=== PATIENT | female | born 1970 | race Caucasian/White ===

== ENCOUNTER 2020-03-14 23:31 | Observation (INO) | payer MEDICARE, OTHER, MEDICAID ==
--- NOTE | 2020-03-15 00:47 | ER Document Report ---
ED Medical Screen (RME) - General Chief Complaint: Accidental Overdose Stated Complaint: POSSIBLE OVERDOSE Time Seen by Provider: 03/15/20 00:44 Primary Care Provider: KAYLYN CUEVAS [Primary Care Provider] - Follow up as needed Notes: 49-year-old female with history of hypertension, diabetes, and obesity here because she took 2 blood pressure pills this evening instead of her normal dose of 1. Patient's chief complaint is chest pains and shortness of breath. She said she feels nervous about possibly taking too much medication she is not associate the onset of the chest pain and the shortness of breath with taking her medication. General exam: No acute distress Cardiac: Regular rate and rhythm no murmurs rubs or gallops Pulmonary: No respiratory distress clear to auscultation Abdomen nondistended nontender. Neuro: No focal deficits I have greeted and performed a rapid initial assessment of this patient. A comprehensive ED assessment and evaluation of the patient, analysis of test results and completion of the medical decision making process will be conducted by additional ED providers. - Related Data Allergies/Adverse Reactions: latex Allergy (Severe, Verified 03/14/20 23:50) azithromycin [From Zithromax Z-Domingo] Allergy (Verified 03/14/20 23:50) tetracycline Allergy (Verified 03/14/20 23:50) Past Medical History - Social History Chew tobacco use (# tins/day): No Frequency of alcohol use: None Drug Abuse: None Physical Exam - Vital signs Vitals: Temp Pulse Resp BP Pulse Ox 98.3 F 78 20 130/63 H 95 03/14/20 23:45 03/14/20 23:45 03/14/20 23:45 03/14/20 23:45 03/14/20 23:45 Course - Vital Signs Vital signs: Temp Pulse Resp BP Pulse Ox 98.3 F 78 20 130/63 H 95 03/14/20 23:45 03/14/20 23:45 03/14/20 23:45 03/14/20 23:45 03/14/20 23:45 Doctor's Discharge - Discharge Referrals: KAYLYN CUEVAS [Primary Care Provider] - Follow up as needed
[2020-03-15 01:22] LABS: ABSOLUTE EOSINOPHILS # (AUTO) 0.2 10^3/uL (0.0-0.6); ABSOLUTE LYMPHOCYTES (AUTO) 4.2 10^3/uL (0.5-4.7); ABSOLUTE MONOCYTES (AUTO) 0.9 10^3/uL (0.1-1.4); ABSOLUTE NEUT (AUTO) 7.8 10^3/uL (1.7-8.2); BASOPHILS % (AUTO) 0.1 % (0-2); EOSINOPHILS % (AUTO) 1.5 % (0-6); HEMATOCRIT 38.7 % (36.0-47.0); LYMPHOCYTES % (AUTO) 31.9 % (13-45); MEAN CORPUSCULAR HEMOGLOBIN 28.5 pg (27.0-33.4); MEAN CORPUSCULAR HGB CONC 33.7 g/dL (32.0-36.0); MEAN CORPUSCULAR VOLUME 85 fl (80-97); MONOCYTES % (AUTO) 7.2 % (3-13); PLATELET COUNT 294 10^3/uL (150-450); RED BLOOD COUNT 4.57 10^6/uL (3.72-5.28); RED CELL DISTRIBUTION WIDTH 15.2 % (11.5-14.0); SEGMENTED NEUTROPHILS % (AUTO) 59.3 % (42-78); TOTAL CELLS COUNTED % (AUTO) 100 %; WHITE BLOOD COUNT 13.1 10^3/uL (4.0-10.5)
--- NOTE | 2020-03-15 01:22 | ER Document Report ---
ED General - General Chief Complaint: Accidental Overdose Stated Complaint: POSSIBLE OVERDOSE Time Seen by Provider: 03/15/20 00:44 Primary Care Provider: KAYLYN CUEVAS [NO LOCAL MD] - Follow up as needed - [facility] Notes: 49-year-old female presents with accidentally taking 2 doses of prazosin, took 2 mg in total. This occurred around 9 PM. She is prescribed this medication for night terrors. However on further discussion, patient states that she is actually here for chest pain. She developed chest pain while lying in bed around 10:30 PM. She states it feels like pressure, it radiates down her right arm and her right jaw. She states that it was worse with exertion. She states that she has had this chest pain before, and it was from a low potassium. She denies a history of coronary artery disease or AR. She states she has never had a stress test before. Additionally feels like she is having some chest tightness/shortness of breath. History of high blood pressure, high cholesterol, diabetes. - Related Data Allergies/Adverse Reactions: latex Allergy (Severe, Verified 03/14/20 23:50) azithromycin [From Zithromax Z-Domingo] Allergy (Verified 03/14/20 23:50) tetracycline Allergy (Verified 03/14/20 23:50) Past Medical History - General Information source: Patient - Social History Smoking Status: Current Every Day Smoker Chew tobacco use (# tins/day): No Frequency of alcohol use: None Drug Abuse: None Family History: Other Patient has homicidal ideation: No - Past Medical History Cardiac Medical History: Reports: Hx Hypercholesterolemia, Hx Hypertension Endocrine Medical History: Reports: Hx Diabetes Mellitus Type 2 Review of Systems - Review of Systems Constitutional: No symptoms reported EENT: No symptoms reported Cardiovascular: Chest pain Respiratory: Short of breath Gastrointestinal: No symptoms reported Genitourinary: No symptoms reported Musculoskeletal: No symptoms reported Skin: No symptoms reported Neurological/Psychological: No symptoms reported Physical Exam - Vital signs Vitals: Temp Pulse Resp BP Pulse Ox 98.3 F 78 20 130/63 H 95 03/14/20 23:45 03/14/20 23:45 03/14/20 23:45 03/14/20 23:45 03/14/20 23:45 - General General appearance: Appears well, Alert In distress: None - HEENT Head: Normocephalic, Atraumatic Extraocular movements intact: Yes Pupils: PERRL - Respiratory Chest status: Nontender Breath sounds: Normal - Cardiovascular Rhythm: Regular Heart sounds: Normal auscultation - Abdominal Inspection: Obese Tenderness: Nontender - Extremities General lower extremity: No: Edema - Neurological Neuro grossly intact: Yes Cognition: Normal Orientation: AAOx4 - Psychological Associated symptoms: Flat affect - Skin Skin Temperature: Warm Course - Re-evaluation Re-evalutation: 49-year-old female initially presenting to the ED for concerns of accidentally taking too much prazosin, she took 2 mg in total. Her blood pressure is okay, actually on the hypertensive side. This is still within a therapeutic dose of prazosin. Will monitor. On further discussion, patient then mentions chest pressure, onset around 10:30 PM, has been constant and she reports worse with exertion. No known cardiac disease, though would have risk factors as she is obese and has HTN/HLD/DM. Her EKG is nonischemic. Aspirin and nitro ordered. 03/15/20 02:35 Minimal leukocytosis. No acute anemia. Mild hypokalemia 3.2, oral replacement ordered. Initial troponin negative, this was drawn close to 3 hours since the onset of chest pain 03/15/20 02:53 Went into reassess patient. She reports her chest pain is relieved. I discussed with her work-up so far. She has just moved to the [place] area, her PCP is in [place] therefore she would not be able to follow-up and get stress test outpatient. Discussed with her admitting her for inpatient stress test based on her risk factors, patient is agreeable for admission. 03/15/20 03:01 Discussed with the hospitalist for admission, she will be admitted to telemetry floor for further evaluation of chest pain - Vital Signs Vital signs: Temp Pulse Resp BP Pulse Ox 98.3 F 78 22 H 122/66 96 03/14/20 23:45 03/14/20 23:45 03/15/20 01:50 03/15/20 01:50 03/15/20 01:49 - Laboratory Result Diagrams: 03/15/20 01:06 03/15/20 01:06 Laboratory results interpreted by me: 03/15/20 03/15/20 01:06 01:06 WBC 13.1 H RDW 15.2 H Potassium 3.2 L Chloride 97 L Carbon Dioxide 32 H Est GFR (MDRD) Non-Af 56 L Glucose 146 H - Diagnostic Test Radiology reviewed: Image reviewed, Reports reviewed - EKG Interpretation by Me Additional EKG results interpreted by me: EKG is interpreted by me. Normal sinus rhythm, rate 74. Narrow QRS. QTc within normal limits. No ST segment elevation. There is a PVC. No previous for comparison. Discharge - Discharge Clinical Impression: Chest pain Qualifiers: Chest pain type: unspecified Qualified Code(s): R07.9 - Chest pain, unspecified Disposition: ADMITTED INPATIENT Admitting Provider: Terrell (Hospitalist) Unit Admitted: Telemetry Referrals: LOCALMD,NO [NO LOCAL MD] - Follow up as needed
[2020-03-15] MEDS ORDERED: ASPIRIN 81 MG TABLET, CHEWABLE PO ONE (01:35)
[2020-03-15 01:45] LABS: ALBUMIN 4.5 g/dL (3.5-5.0); ALKALINE PHOSPHATASE 83 U/L (38-126); ANION GAP 9 (5-19); ASPARTATE AMINO TRANSFERASE 25 U/L (14-36); BILIRUBIN,DIRECT 0.3 mg/dL (0.0-0.4); BILIRUBIN,TOTAL 0.7 mg/dL (0.2-1.3); BLOOD UREA NITROGEN 14 mg/dL (7-20); CALCIUM 9.3 mg/dL (8.4-10.2); CARBON DIOXIDE 32 mmol/L (22-30); CHLORIDE 97 mmol/L (98-107); GLUCOSE 146 mg/dL (75-110); POTASSIUM 3.2 mmol/L (3.6-5.0); TOTAL PROTEIN 7.6 g/dL (6.3-8.2)
[2020-03-15] MEDS: NITROGLYCERIN 0.4 MG/TAB 25 TAB/BOTTLE SL PRN ×2 (01:47→02:10)
[2020-03-15] MEDS ORDERED: POTASSIUM CHLORIDE 20 MEQ PACKET PO ONE (02:04)
--- NOTE | 2020-03-15 02:28 | RADIOLOGY REPORT (SQ) ---
EXAM DESCRIPTION: XR CHEST 1 VIEW COMPLETED DATE/TME: 03/15/2020 00:46 CLINICAL HISTORY: cp COMPARISON: None. FINDINGS: Single frontal radiograph view of the chest. Cardiomediastinal silhouette: Normal size and contour. Lungs: No consolidation, pneumothorax, or pleural effusion. Leads overlie the chest. Bones: No acute osseous abnormality. Upper abdomen: No abnormality identified. IMPRESSION: 1. No acute pulmonary process identified.
[2020-03-15] MEDS ORDERED: MAGNESIUM HYDROXIDE SUSP 30 ML UDCUP PO PRN (03:40)
[2020-03-15] MEDS ORDERED: ONDANSETRON HCL INJ/PF 4 MG/2 ML SDV IV PRN (03:40)
[2020-03-15] MEDS ORDERED: MAG HYDROX/AL HYDROX/SIMETH SUSP 30 ML UDCUP PO PRN (03:40)
[2020-03-15] MEDS ORDERED: LORAZEPAM INJ 2 MG/1 ML VIAL IV PRN (03:46)
[2020-03-15] MEDS ORDERED: MORPHINE SULFATE 10 MG/ML INJ IV PRN ×3 (03:46→06:47)
[2020-03-15] MEDS ORDERED: NICOTINE 21 MG/24 HR PATCH.TD24 TD PRN (03:46)
[2020-03-15] MEDS ORDERED: NITROGLYCERIN 0.4 MG/TAB 25 TAB/BOTTLE SL PRN (03:46)
[2020-03-15] MEDS ORDERED: HYDRALAZINE HCL INJ/PF 20 MG/1 ML SDV IV PRN (03:46)
[2020-03-15] MEDS ORDERED: ACETAMINOPHEN 325 MG TABLET PO PRN (03:46)
[2020-03-15] MEDS ORDERED: GUAIFENESIN SYRP 200 MG/10 ML UDC PO PRN (03:46)
[2020-03-15] MEDS ORDERED: MELATONIN 5 MG TABLET PO PRN (03:46)
[2020-03-15] MEDS ORDERED: DEXTROSE 40% GEL 15 GM TUBE PO PRN ×2 (03:48)
[2020-03-15] MEDS ORDERED: DEXTROSE 50%-WATER 25 GM/50 ML DISP.SYRIN IV PRN ×2 (03:48)
[2020-03-15] MEDS ORDERED: GLUCAGON,HUMAN RECOMB 1 MG INJ IM PRN (03:48)
[2020-03-15 04:43] LABS: CREATINE KINASE MB 1.31 ng/mL (<4.55)
[2020-03-15 04:47] LABS: TROPONIN I < 0.012 ng/mL
[2020-03-15] MEDS: HEPARIN SOD (PORCINE) 5,000 UNIT/ML 1 ML VIAL SUBCUT SCH ×3 (06:04→22:19)
--- NOTE | 2020-03-15 06:28 | PDOC H&P ---
History of Present Illness Admission Date/PCP: 03/15/20 03:06 No local PCP Patient complains of: Chest pressure History of Present Illness: REBECCA OJEDA is a 49 year old female who presented to the emergency room with acute chest pressure. She admits accidentally taking two 1 mg prazosin tablets at bedtime and this caused her concern as she was lying in bed and suddenly began having moderate pressure in her substernal chest which radiated down her right arm persisting continuously, until she was treated in the emergency room. The pain was exacerbated by exertion or activity. She admits accompanying mild dyspnea but denies denies other associated or accompanying signs and symptoms. She admits prior similar episodes. She has not identified any additional aggravating or ameliorating factors for her chest pressure. In the emergency room her chest pain was resolved with sublingual nitroglycerin x1, aspirin and supplemental oxygen. She was found to have a nonischemic EKG and cardiac enzymes which were within the normal range initially. She was subsequently admitted to observation status for further evaluation and treatment. Past Medical History Cardiac Medical History: Reports: Hyperlipidema, Hypertension Denies: Atrial Fibrillation, Congestive Heart Failure, Coronary Artery Disease, DVT, Myocardial Infarction, Peripheral Vascular Disease, Pulmonary Embolism Pulmonary Medical History: Reports: Asthma Denies: Chronic Obstructive Pulmonary Disease (COPD) EENT Medical History: Denies: Cataracts, Ears - Hearing aids Neurological Medical History: Denies: Hemorrhagic CVA, Ischemic CVA, Seizures Endocrine Medical History: Reports: Diabetes Mellitus Type 2, Obesity Denies: Diabetes Mellitus Type 1, Hyperthyroidism, Hypothyroidism Renal/ Medical History: Denies: Chronic Kidney Disease, Nephrolithiasis Malignancy Medical History: Reports: None GI Medical History: Denies: Cirrhosis, Crohn's Disease, Hepatitis, Peptic Ulcer Disease, Ulcerat nikki Colitis Musculoskeltal Medical History: Reports: Arthritis, Other - Chronic back pain due to lumbar disc disease Denies: Gout Skin Medical History: Denies: Eczema, Psoriasis Psychiatric Medical History: Reports: Tobacco Dependency, Other - Night terrors Denies: Alcohol Dependency, Substance Abuse Traumatic Medical History: Reports: None Hematology: Denies: Anemia, Bleeding Tendencies Infectious Medical History: Reports: None Past Surgical History Past Surgical History: Reports: Appendectomy, Cholecystectomy, Hysterectomy, Orthopedic Surgery - Multiple back and knee surgeries, Other - Colonoscopy and EGD Social History Information Source: Patient Lives with: Alone Smoking Status: Current Every Day Smoker Cigarettes Packs Per Day: 0.5 Electronic Cigarette use?: No Frequency of Alcohol Use: None Hx Recreational Drug Use: No Drugs: None Hx Prescription Drug Abuse: No - Advance Directive Resuscitation Status: Full Code Surrogate healthcare decision maker:: Iram Stewart Family History Family History: DM, Hyperlipidemia, Hypertension. denies: CAD, Malignancy Parental Family History Reviewed: Yes Children Family History Reviewed: No Sibling(s) Family History Reviewed.: Yes Medication/Allergy Allergies/Adverse Reactions: latex Allergy (Severe, Verified 03/14/20 23:50) azithromycin [From Zithromax Z-Domingo] Allergy (Verified 03/14/20 23:50) tetracycline Allergy (Verified 03/14/20 23:50) Review of Systems Constitutional: ABSENT: chills, fever(s) Eyes: ABSENT: visual disturbances, other - Eye pain Ears: ABSENT: hearing changes, other - Ear pain Nose, Mouth, and Throat: ABSENT: headache(s), sore throat Cardiovascular: PRESENT: as per HPI, chest pain - Chest pressure, dyspnea on exertion. ABSENT: edema, orthropnea, palpitations Respiratory: PRESENT: dyspnea. ABSENT: cough Gastrointestinal: ABSENT: abdominal pain, constipation, diarrhea, nausea, vomiting Genitourinary: ABSENT: dysuria, hematuria Musculoskeletal: ABSENT: back pain, joint swelling Integumentary: ABSENT: pruritus, rash Neurological: ABSENT: confusion, convulsions, focal weakness, memory loss, syncope Psychiatric: ABSENT: anxiety, depression Endocrine: ABSENT: cold intolerance, heat intolerance Hematologic/Lymphatic: ABSENT: easy bleeding, easy bruising Allergic/Immunologic: ABSENT: seasonal rhinorrhea Physical Exam Vital Signs: Temp Pulse Resp BP Pulse Ox 98.3 F 78 22 H 122/66 96 03/14/20 23:45 03/14/20 23:45 03/15/20 01:50 03/15/20 01:50 03/15/20 01:49 Intake & Output 03/13/20 03/14/20 03/15/20 23:59 23:59 23:59 Weight 109 kg General appearance: PRESENT: no acute distress, cooperative, morbidly obese Head exam: PRESENT: atraumatic, normocephalic Eye exam: PRESENT: conjunctiva pink. ABSENT: conjunctival injection, scleral icterus Ear exam: PRESENT: normal external ear exam. ABSENT: bleeding, drainage Mouth exam: PRESENT: dry mucosa, neck supple Neck exam: ABSENT: thyromegaly, tracheal deviation Respiratory exam: PRESENT: clear to auscultation neno, symmetrical, unlabored Cardiovascular exam: PRESENT: RRR. ABSENT: clicks, gallop, rubs Pulses: PRESENT: normal radial pulses, normal dorsalis pedis pul Vascular exam: PRESENT: normal capillary refill. ABSENT: pallor GI/Abdominal exam: PRESENT: normal bowel sounds, soft. ABSENT: tenderness Rectal exam: PRESENT: deferred Extremities exam: ABSENT: joint swelling, pedal edema Musculoskeletal exam: ABSENT: deformity, dislocation Neurological exam: PRESENT: alert, oriented to person, oriented to place, oriented to time, oriented to situation, CN II-XII grossly intact. ABSENT: motor sensory deficit Psychiatric exam: PRESENT: anxious, flat affect Skin exam: PRESENT: dry, intact, warm. ABSENT: jaundice, rash, urticaria Results Laboratory Results: 03/15/20 01:06 03/15/20 01:06 03/15/20 03/15/20 01:06 01:06 WBC 13.1 H RBC 4.57 Hgb 13.0 Hct 38.7 MCV 85 MCH 28.5 MCHC 33.7 RDW 15.2 H Plt Count 294 Seg Neutrophils % 59.3 Sodium 137.9 Potassium 3.2 L Chloride 97 L Carbon Dioxide 32 H Anion Gap 9 BUN 14 Creatinine 1.05 Est GFR ( Amer) > 60 Glucose 146 H Calcium 9.3 Total Bilirubin 0.7 AST 25 Alkaline Phosphatase 83 Total Protein 7.6 Albumin 4.5 03/15/20 01:06 Troponin I < 0.012 Impressions: Chest X-Ray 03/15/20 00:46 IMPRESSION: 1. No acute pulmonary process identified. Assessment and Plan - Diagnosis (1) Chest pressure Is this a current diagnosis for this admission?: Yes (2) Hypertension Qualifiers: Hypertension type: essential hypertension Qualified Code(s): I10 - Essential (primary) hypertension Is this a current diagnosis for this admission?: Yes (3) Hyperlipidemia Qualifiers: Hyperlipidemia type: unspecified Qualified Code(s): E78.5 - Hyperlipidemia, unspecified Is this a current diagnosis for this admission?: Yes (4) Diabetes mellitus type 2 in obese Is this a current diagnosis for this admission?: Yes (5) Morbid obesity Is this a current diagnosis for this admission?: Yes (6) Chronic back pain Qualifiers: Back pain location: low back pain Sciatica presence: with sciatica Sciatica laterality: sciatica of right side Is this a current diagnosis for this admission?: Yes (7) Tobacco use disorder, continuous Is this a current diagnosis for this admission?: Yes - Plan Summary Summary: Patient will be admitted on observation status to the medical floor in a telemetry bed where she will receive routine supportive and symptomatic cares. A cardiology consultation with Dr. Krishnamurthy will be obtained to consider the patient for a cardiac stress test. Serial cardiac enzymes will be obtained. Before meals and at bedtime Accu-Cheks will be obtained with sliding scale insulin used for hyperglycemia and a hypoglycemic protocol in place. A cardiac and diabetic restricted diet will be ordered. Additional laboratory and/or radiographic evaluations will be obtained as appropriate. Smoking cessation is advised and counseled briefly at the bedside. A nicotine replacement patch is available for the patient's use, if desired. She will use morphine sulfate 2 to 4 mg IV every 2 hours as needed for pain not responding to nitroglycerin. She will use Ativan 1 mg IV every 4 hours as needed for anxiety or restlessness. - Time Time Spent with patient: 15-24 minutes Smoking Cessation Education: 3 to 10 minutes Medications reviewed and adjusted accordingly: Yes Anticipated Discharge Disposition: Home, Self Care Anticipated Discharge Timeframe: within 36 hours - Inpatient Certification Based on my medical assessment, after consideration of the patient's comorbidities, presenting symptoms, or acuity I expect that the services needed warrant INPATIENT care.: No I certify that my determination is in accordance with my understanding of Medicare's requirements for reasonable and necessary INPATIENT services [42 CFR 412.3e].: No
--- NOTE | 2020-03-15 07:46 | EKG REPORT ---
SEVERITY:- BORDERLINE ECG - SINUS RHYTHM VENTRICULAR PREMATURE COMPLEX : Confirmed by: Chalino Cason MD 15-Mar-2020 07:46:00
[2020-03-15] MEDS: POTASSI CL 20 MEQ/50 ML RIDER 20 MEQ/50 ML RTUPB IV SCH ×2 (08:18→09:29)
[2020-03-15] MEDS: INSULIN REG, HUMAN 100 UNIT/ML 3 ML VIAL (PYX) SUBCUT SCH ×4 (08:26→22:13)
[2020-03-15] MEDS: FAMOTIDINE 20 MG TABLET PO SCH ×2 (09:29→22:19)
[2020-03-15] MEDS: DOCUSATE SODIUM 100 MG CAPSULE PO SCH ×2 (09:29→17:42)
[2020-03-15] MEDS: LEVALBUTEROL HCL NEB 0.63 MG/3 ML AMPUL NEB PRN (09:35)
--- NOTE | 2020-03-15 12:29 | Progress Note ---
Provider Note Provider Note: Patient seen and evaluated by me today. Dr. Tejada admitted this patient in late this morning, please see his H&P for full details. Patient has ongoing chest pain. I discussed the case with Dr. Oseguera who is considering whether patient should have stress test done here tomorrow or have it done in his office which reportedly has superior stress test capabilities. Troponins have been negative.
[2020-03-15 12:38] LABS: CREATINE KINASE MB 1.05 ng/mL (<4.55)
[2020-03-15 12:41] LABS: TROPONIN I < 0.012 ng/mL
[2020-03-15] MEDS: MORPHINE SULFATE 10 MG/ML INJ IV PRN ×2 (14:21→18:45)
[2020-03-15] MEDS ORDERED: HYDROXYZINE PAMOATE 50 MG CAPSULE PO PRN (14:56)
--- NOTE | 2020-03-15 16:28 | PDOC CONSULTATION ---
Consultation-Blank Consultation: CARDIOLOGY CONSULTATION by Dr. Beatriz Krishnamurthy on 03/15/2020. Patient seen at 3 PM. 60 minutes spent on this patient more than 50% of time spent in direct patient care. REASON FOR CONSULTATION: Chest pain in a patient with multiple CAD risk factors. CONSULT REQUESTING PHYSICIAN Dr. Parker Ornelas, [facility]. HISTORY OF PRESENT ILLNESS: Patient is a 49-year-old with a history of hypertension and diabetes mellitus and significant psychiatric disorders namely seizure affective disorder, bipolar disorder and schizophrenia states that she usually takes prazosin for nightmares. She took to present since last night and became very anxious due to her having taking 2 of the presence of 1.. She became very anxious and short of breath. Subsequently she started having chest pain. The patient's description of chest pain is chest dull ache with pressure this is very easily reproducible by pressing on the chest. It does not increase with exertion. In spite of the documentation in the notes that the patient's chest pain was relieved with sublingual nitroglycerin. But on repeated questioning the patient states the nitroglycerin since sort of ease the pain but did not really take it away. She had severe headaches with nitroglycerin. She still has chest pain which is reproducible by pressing on the front of the sternum and the right lower rib cages. There is no areas of inflammation and there is no point tenderness suggestive of fibromyalgia. She denies any s hortness of breath. There is no palpitations near syncope or syncope. She has no history of asthma or COPD. She has no prior history of [place] anginal symptoms or coronary artery disease. She has no history of congestive heart failure. Her EKG is unremarkable for acute ischemia and a troponin serially has been negative. She has a history of anxiety and depression, and chronic pain. Especially back pain due to multiple back surgeries in the past. She also has hyperlipidemia on statin. Past Medical History Cardiac Medical History: Reports: Hyperlipidema, Hypertension Denies: Atrial Fibrillation, Congestive Heart Failure, Coronary Artery Disease, DVT, Myocardial Infarction, Peripheral Vascular Disease, Pulmonary Embolism Pulmonary Medical History: Reports: Asthma Denies: Chronic Obstructive Pulmonary Disease (COPD) EENT Medical History: Denies: Cataracts, Ears - Hearing aids Neurological Medical History: Denies: Hemorrhagic CVA, Ischemic CVA, Seizures Endocrine Medical History: Reports: Diabetes Mellitus Type 2, Obesity Denies: Diabetes Mellitus Type 1, Hyperthyroidism, Hypothyroidism Renal/ Medical History: Denies: Chronic Kidney Disease, Nephrolithiasis Malignancy Medical History: Reports: None GI Medical History: Denies: Cirrhosis, Crohn's Disease, Hepatitis, Peptic Ulcer Disease, Ulcerative Colitis Musculoskeltal Medical History: Reports: Arthritis, Other - Chronic back pain due to lumbar disc disease Denies: Gout Skin Medical History: Denies: Eczema, Psoriasis Psychiatric Medical History: Reports: Tobacco Dependency, Other - Night terrors Denies: Alcohol Dependency, Substance Abuse Traumatic Medical History: Reports: None Hematology: Denies: Anemia, Bleeding Tendencies Infectious Medical History: Reports: None Past Surgical History Past Surgical History: Reports: Appendectomy, Cholecystectomy, Hysterectomy, Orthopedic Surgery - Multiple back and knee surgeries, Other - Colonoscopy and EGD Social History Information Source: Patient Lives with: Alone Smoking Status: Current Every Day Smoker Cigarettes Packs Per Day: 0.5 Electronic Cigarette use?: No Frequency of Alcohol Use: None Hx Recreational Drug Use: No Drugs: None Hx Prescription Drug Abuse: No - Advance Directive Resuscitation Status: Full Code Surrogate healthcare decision maker:: Iram Stewart Family HistoryF family History: DM, Hyperlipidemia, Hypertension. There is a history of CAD in her grandmother. There is a family history of malignancy Parental Family History Reviewed: Yes Children Family History Reviewed: No Sibling(s) Family History Reviewed.: Yes Medication/Allergy Allergies/Adverse Reactions: latex Allergy (Severe, Verified 03/14/20 23:50) azithromycin [From Zithromax Z-Domingo] Allergy (Verified 03/14/20 23:50) tetracycline Allergy (Verified 03/14/20 23:50) Current Medications Generic Name Dose Route Start Last Admin Trade Name Freq PRN Reason Stop Dose Admin Acetaminophen 650 mg 03/15/20 03:46 Tylenol 325 Mg Tablet PO 04/14/20 03:45 Q4HP PRN For headache, pain or fever Al Hydrox/Mg Hydrox/Simethicone 30 ml 03/15/20 03:40 Maalox Plus Susp 30 Udcup PO 04/14/20 03:39 Q6HP PRN HEARTBURN Atorvastatin Calcium 40 mg 03/15/20 22:00 03/15/20 22:19 Lipitor 40 Mg Tablet PO 04/14/20 21:59 40 mg QHS CARLEE Administration Baclofen 10 mg 03/15/20 18:00 03/15/20 17:42 Baclofen 10 Mg Tablet PO 04/14/20 17:59 10 mg BID CARLEE Administration Buspirone HCl 10 mg 03/15/20 22:00 03/15/20 22:19 Buspar 10 Mg Tablet PO 04/14/20 21:59 10 mg Q8 CARLEE Administration Chlorthalidone 25 mg 03/16/20 10:00 Hygroton 25 Mg Tablet PO 04/15/20 09:59 DAILY CARLEE Dextrose 12.5 gm 03/15/20 03:48 Dextrose Inj 50% Syringe (25 Gm/50 Ml) IV 04/14/20 03:47 PRN PRN FOR BG 50-69 IN ALERT PATIENT Protocol Dextrose 25 gm 03/15/20 03:48 Dextrose Inj 50% Syringe (25 Gm/50 Ml) IV 04/14/20 03:47 PRN PRN PER PROTOCOL Protocol Docusate Sodium 100 mg 03/15/20 10:00 03/15/20 17:42 Colace 100 Mg Capsule PO 04/14/20 09:59 100 mg BID CARLEE Administration Famotidine 20 mg 03/15/20 10:00 03/15/20 22:19 Pepcid 20 Mg Tablet PO 04/14/20 09:59 20 mg Q12 CARLEE Administration Gabapentin 800 mg 03/15/20 18:00 03/15/20 22:20 Neurontin 400 Mg Capsule PO 04/14/20 17:59 800 mg QID CARLEE Administration Glucagon 1 mg 03/15/20 03:48 Glucagen Inj 1 Mg Vial IM 04/14/20 03:47 PRN PRN Evaluate for BG < 70 Protocol Glucose 15 gm 03/15/20 03:48 Glutose 40% Gel 15 Gm Tube PO 04/14/20 03:47 PRN PRN FOR BG 50-69 IN ALERT PATIENT Protocol Glucose 30 gm 03/15/20 03:48 Glutose 40% Gel 15 Gm Tube PO 04/14/20 03:47 PRN PRN FOR BG < 50 IN ALERT PATIENT Protocol Guaifenesin 200 mg 03/15/20 03:46 Robitussin Syrup 200 Mg/10 Ml Ud Cup PO 04/14/20 03:45 Q4HP PRN COUGH Heparin Sodium (Porcine) 5,000 unit 03/15/20 06:00 03/15/20 22:19 Heparin Inj 5,000 Units/Ml 1 Ml Vial SUBCUT 04/14/20 05:59 5,000 unit Q8 CARLEE Administration Hydralazine HCl 20 mg 03/15/20 03:46 Apresoline Inj/Pf 20 Mg/1 Ml Sdv IV 04/14/20 03:45 Q4HP PRN Give For Sbp > 160 / Dbp > 100 Hydroxyzine Pamoate 50 mg 03/15/20 14:56 Vistaril 50 Mg Capsule PO 04/14/20 14:55 HSP PRN FOR SLEEP Insulin Human Regular 0 - 15 unit 03/15/20 08:00 03/15/20 22:13 Humulin R (Pyxis) Insulin 100 Unit/Ml 3ml SUBCUT 04/14/20 07:59 Not Given ACHS [facility] Protocol Lamotrigine 100 mg 03/15/20 22:00 03/15/20 22:20 Lamictal 100 Mg Tablet PO 04/14/20 21:59 100 mg Q12 CARLEE Administration Levalbuterol HCl 0.63 mg 03/15/20 03:46 03/15/20 09:35 Xopenex Neb 0.63 Mg/3 Ml Ampul NEB 04/14/20 03:45 0.63 mg RTQ2HP PRN Administration SHORTNESS OF BREATH Lorazepam 1 mg 03/15/20 03:46 Ativan Inj 2 Mg/1 Ml Vial IV 03/22/20 03:45 Q4HP PRN ANXIETY/AGITATION Lurasidone HCl 40 mg 03/16/20 10:00 Latuda 40 Mg Tablet PO 04/15/20 09:59 DAILY CARLEE Magnesium Hydroxide 30 ml 03/15/20 03:40 Milk Of Magnesia 30 Ml Udcup PO 04/14/20 03:39 DAILYP PRN FOR CONSTIPATION Melatonin 5 mg 03/15/20 03:46 Melatonin 5 Mg Tablet PO 04/14/20 03:45 HSP PRN SLEEP OR INSOMNIA Metoprolol Succinate 25 mg 03/16/20 10:00 Toprol Xl 25 Mg Tab.Sr PO 04/15/20 09:59 DAILY CARLEE Morphine Sulfate 2 mg 03/15/20 06:47 Morphine 10 Mg/Ml Inj IV 03/22/20 06:46 Q2HP PRN PAIN SCALE OF 2 Morphine Sulfate 3 mg 03/15/20 06:47 Morphine 10 Mg/Ml Inj IV 03/22/20 06:46 Q2HP PRN FOR PAIN SCALE 3-4 Morphine Sulfate 4 mg 03/15/20 06:48 03/15/20 18:45 Morphine 10 Mg/Ml Inj IV 03/22/20 06:47 4 mg Q2HP PRN Administration PAIN SCALE OF 5 Nicotine 1 each 03/15/20 03:46 Nicoderm 21 Mg/24 Hr Transderm Patch TD 04/14/20 03:45 DAILYP PRN WITHDRAWAL SYMPTOMS Nitroglycerin 1 tab 03/15/20 03:46 Nitrostat 0.4 Mg (1/150 Gr) Tabs 25/Bottle SL 04/14/20 03:45 Q5MP PRN FOR CHEST PAIN Ondansetron HCl 4 mg 03/15/20 03:40 Zofran Inj/Pf 4 Mg/2 Ml Sdv IV 04/14/20 03:39 Q4HP PRN FOR NAUSEA/VOMITING Patient Own Medication 1 mg 03/15/20 22:00 Prazosin Hcl [Minipress] PO 04/14/20 21:59 QHS CARLEE Potassium Chloride 20 meq 03/15/20 18:00 03/15/20 17:42 Klor-Con 10 Meq Tablet Er PO 04/14/20 17:59 20 meq BID CARLEE Administration Sodium Chloride 2.5 ml 03/15/20 06:00 03/15/20 22:20 Saline Flush 2.5 Ml Monoject Prefil Syrin IV 04/14/20 05:59 2.5 ml Q8 CARLEE Administration Ziprasidone 80 mg 03/15/20 22:00 03/15/20 22:19 Geodon 40 Mg Capsule PO 04/14/20 21:59 80 mg Q12 CARLEE Administration Discontinued Medications Generic Name Dose Route Start Last Admin Trade Name Freq PRN Reason Stop Dose Admin Aspirin 324 mg 03/15/20 01:35 03/15/20 01:47 Aspirin 81 Mg Chewable Tablet PO 03/15/20 01:36 324 mg NOW ONE Administration NOW ONE Potassium Chloride/Water 20 meq in 50 mls @ 25 mls/hr 03/15/20 06:30 03/15/20 11:29 Potassium Chloride Ernesto 20 Meq/50 Ml IV 03/15/20 10:29 Infused Q2H CARLEE Infusion Morphine Sulfate 2 - 4 mg 03/15/20 03:46 Morphine 10 Mg/Ml Inj IV 03/22/20 03:45 Q2HP PRN See protocol Protocol Nitroglycerin 1 tab 03/15/20 01:35 03/15/20 02:10 Nitrostat 0.4 Mg (1/150 Gr) Tabs 25/Bottle SL 0.4 mg ASDIR PRN Administration FOR PAIN Potassium Chloride 40 meq 03/15/20 02:04 03/15/20 02:14 Potassium Chloride 20 Meq Packet PO 03/15/20 02:05 40 meq NOW ONE Administration Review of Systems Constitutional: ABSENT: chills, fever(s) Eyes: ABSENT: visual disturbances, other - Eye pain Ears: ABSENT: hearing changes, other - Ear pain Nose, Mouth, and Throat: ABSENT: headache(s), sore throat Cardiovascular: PRESENT: as per HPI, chest pain - Chest pressure, dyspnea on exertion. ABSENT: edema, orthropnea, palpitations Respiratory: PRESENT: dyspnea. ABSENT: cough Gastrointestinal: ABSENT: abdominal pain, constipation, diarrhea, nausea, vomiting Genitourinary: ABSENT: dysuria, hematuria Musculoskeletal: ABSENT: back pain, joint swelling Integumentary: ABSENT: pruritus, rash Neurological: ABSENT: confusion, convulsions, focal weakness, memory loss, syncope Psychiatric: ABSENT: anxiety, depression Endocrine: ABSENT: cold intolerance, heat intolerance Hematologic/Lymphatic: ABSENT: easy bleeding, easy bruising Allergic/Immunologic: ABSENT: seasonal rhinorrhea PHYSICAL EXAMINATION: The patient is morbidly obese. In no acute distress. As mentioned earlier pressing on the chest wall reproduces her symptoms fully. Selected Entries 03/15/20 15:50 Temperature 97.6 F Temperature Oral Source Pulse Rate 71 Respiratory 18 Rate Blood Pressure 121/63 Blood Pressure 82 Mean BP Location Right Arm BP Position Supine O2 Sat by Pulse 98 Oximetry Oxygen Delivery Room Air Method HEAD: Head is atraumatic normocephalic. Eyes: Pupils are equal round regular reactive light accommodation extraocular movements are normal there is no congenital pallor there is no scleral icterus. Ears: External auditory canals are clear, there are no lesions of the pinna. Nose: No deviated nasal septum and no inflammation of the nasal mucous membrane. Mouth: Mucous membranes of mouth are moist tongue is moist there is no ulcers there is no bleeding from the gums. Throat: There is no redness of the oropharynx there is no exudates. Skin: There is no petechia or ecchymosis there is no skin lesions or skin hillary hes. Neck: Neck is supple there is no JVD carotids equal there is no bruit there is no lymphadenopathy there is no neck stiffness. There is no goiter trachea central lungs: Lungs are clear to auscultation percussion there is no accessory muscles of respiration in use. There is no rhonchi rales or wheezing. There is chest wall tenderness which reproduces the patient's chest pain.. HEART: S1-S2 is heard there is no S3 gallop there is no S4 gallop S1 is of normal intensity. There no rub. The systolic murmur in the left sternal border and apex without radiation. Abdomen: Abdomen is soft nontender there is no paraspinal megaly bowel sounds well heard there is no tender areas of masses. There is no rebound guarding or rigidity. Extremities: Femorals are well felt there is no femoral bruits neck pulses are well felt there is no pedal edema there is no DVT or cellulitis there is no cyanosis or clubbing there is no DVT or cellulitis. There is no calf tenderness. SILVICULTURIST: The patient is awake alert oriented 3 with no focal deficits. Psychiatric: The patient judgment and insight are intact and her affect is normal. EKG: Sinus rhythm. 1 PVC. Otherwise normal EKG Labs- Entire Visit 03/15/20 03/15/20 03/15/20 01:06 01:06 01:06 WBC 13.1 H RBC 4.57 Hgb 13.0 Hct 38.7 MCV 85 MCH 28.5 MCHC 33.7 RDW 15.2 H Plt Count 294 Lymph % (Auto) 31.9 Rock % (Auto) 7.2 Eos % (Auto) 1.5 Baso % (Auto) 0.1 Absolute Neuts (auto) 7.8 Absolute Lymphs (auto) 4.2 Absolute Monos (auto) 0.9 Absolute Eos (auto) 0.2 Absolute Basos (auto) 0.0 Seg Neutrophils % 59.3 Sodium 137.9 Potassium 3.2 L Chloride 97 L Carbon Dioxide 32 H Anion Gap 9 BUN 14 Creatinine 1.05 Est GFR ( Amer) > 60 Est GFR (MDRD) Non-Af 56 L Glucose 146 H POC Glucose Calcium 9.3 Total Bilirubin 0.7 Direct Bilirubin 0.3 Neonat Total Bilirubin Not Reportable Neonat Direct Bilirubin Not Reportable Neonat Indirect Bili Not Reportable AST 25 ALT 20 Alkaline Phosphatase 83 Creatine Kinase CK-MB (CK-2) Troponin I < 0.012 Total Protein 7.6 Albumin 4.5 03/15/20 03/15/20 03/15/20 03:50 03:50 06:10 WBC RBC Hgb Hct MCV MCH MCHC RDW Plt Count Lymph % (Auto) Rock % (Auto) Eos % (Auto) Baso % (Auto) Absolute Neuts (auto) Absolute Lymphs (auto) Absolute Monos (auto) Absolute Eos (auto) Absolute Basos (auto) Seg Neutrophils % Sodium Potassium Chloride Carbon Dioxide Anion Gap BUN Creatinine Est GFR ( Amer) Est GFR (MDRD) Non-Af Glucose POC Glucose 182 H Calcium Total Bilirubin Direct Bilirubin Neonat Total Bilirubin Neonat Direct Bilirubin Neonat Indirect Bili AST ALT Alkaline Phosphatase Creatine Kinase 89 CK-MB (CK-2) 1.31 Troponin I < 0.012 Total Protein Albumin 03/15/20 03/15/20 03/15/20 10:40 11:33 11:33 WBC RBC Hgb Hct MCV MCH MCHC RDW Plt Count Lymph % (Auto) Rock % (Auto) Eos % (Auto) Baso % (Auto) Absolute Neuts (auto) Absolute Lymphs (auto) Absolute Monos (auto) Absolute Eos (auto) Absolute Basos (auto) Seg Neutrophils % Sodium Potassium Chloride Carbon Dioxide Anion Gap BUN Creatinine Est GFR ( Amer) Est GFR (MDRD) Non-Af Glucose POC Glucose 134 H Calcium Total Bilirubin Direct Bilirubin Neonat Total Bilirubin Neonat Direct Bilirubin Neonat Indirect Bili AST ALT Alkaline Phosphatase Creatine Kinase 70 CK-MB (CK-2) 1.05 Troponin I < 0.012 Total Protein Albumin 03/15/20 03/15/20 03/15/20 16:11 18:23 18:23 WBC RBC Hgb Hct MCV MCH MCHC RDW Plt Count Lymph % (Auto) Rock % (Auto) Eos % (Auto) Baso % (Auto) Absolute Neuts (auto) Absolute Lymphs (auto) Absolute Monos (auto) Absolute Eos (auto) Absolute Basos (auto) Seg Neutrophils % Sodium Potassium Chloride Carbon Dioxide Anion Gap BUN Creatinine Est GFR ( Amer) Est GFR (MDRD) Non-Af Glucose POC Glucose 144 H Calcium Total Bilirubin Direct Bilirubin Neonat Total Bilirubin Neonat Direct Bilirubin Neonat Indirect Bili AST ALT Alkaline Phosphatase Creatine Kinase 71 CK-MB (CK-2) 1.09 Troponin I < 0.012 Total Protein Albumin 03/15/20 03/15/20 19:33 22:02 WBC RBC Hgb Hct MCV MCH MCHC RDW Plt Count Lymph % (Auto) Rock % (Auto) Eos % (Auto) Baso % (Auto) Absolute Neuts (auto) Absolute Lymphs (auto) Absolute Monos (auto) Absolute Eos (auto) Absolute Basos (auto) Seg Neutrophils % Sodium Potassium Chloride Carbon Dioxide Anion Gap BUN Creatinine Est GFR ( Amer) Est GFR (MDRD) Non-Af Glucose POC Glucose 166 H 128 H Calcium Total Bilirubin Direct Bilirubin Neonat Total Bilirubin Neonat Direct Bilirubin Neonat Indirect Bili AST ALT Alkaline Phosphatase Creatine Kinase CK-MB (CK-2) Troponin I Total Protein Albumin Chest X-Ray 03/15/20 00:46 IMPRESSION: 1. No acute pulmonary process identified. IMPRESSION/RECOMMENDATION: 1. Chest pain. This is clearly noncardiac chest pain. Hence I discussed with the hospitalist that at present there is no hurry to get an inpatient Cardiolite nuclear stress test. But the patient does have multiple risk factors. Hence will later recommend that the patient have an IV Lexiscan Cardiolite stress test. This can be done as an outpatient. This is due to the fact the patient's chest wall pain needs to be controlled first prior to in any confusion arising during the stress test regarding the patient's etiology of chest pain. We will give a trial of colchicine to see if this will take care of the patient chest wall pain would continue aspirin and beta-[place] and statin. 2. Hypertension: Well-controlled 3. Diabetes mellitus.: Continue current treatment. 4. Hyperlipidemia: Continue statin. 5. History of anxiety and depression 6. Chronic pain syndrome 7. History of multiple psychiatric problems/illnesses namely schizophrenia, bipolar disorder and seizure affective disorder. History of nightmares. 8. Morbid obesity. 9. Multiple CAD risk factors namely age, hypertension, diabetes mellitus, hyperlipidemia, and family history of coronary artery disease. Medications reviewed. Medications added. Medical decision making is of high complexity. Medical regimen management plan discussed with attending provider on the case. 60 minutes spent as patient more than 50% of time spent in direct patient care. Will follow the patient up in as an outpatient. Will recheck the patient's status tomorrow to see the effect of colchicine that was started.
[2020-03-15] MEDS: GABAPENTIN 400 MG CAPSULE PO SCH ×2 (17:42→22:20)
[2020-03-15] MEDS: BACLOFEN 10 MG TABLET PO SCH (17:42)
[2020-03-15] MEDS: POTASSIUM CHLORIDE 10 MEQ TABLET.ER PO SCH (17:42)
[2020-03-15 19:21] LABS: CREATINE KINASE MB 1.09 ng/mL (<4.55)
[2020-03-15 19:28] LABS: TROPONIN I < 0.012 ng/mL
[2020-03-15] MEDS ORDERED: (PENDING PHARMACY ID) (Prazosin Hcl [Minipress] 1 MG) PO SCH (22:00)
[2020-03-15] MEDS ORDERED: ATORVASTATIN CALCIUM 40 MG TABLET PO SCH (22:00)
[2020-03-15] MEDS ORDERED: COLCHICINE 0.6 MG TABLET PO ONE (22:01)
[2020-03-15] MEDS: ZIPRASIDONE HCL 40 MG CAPSULE PO SCH (22:19)
[2020-03-15] MEDS: BUSPIRONE HCL 10 MG TABLET PO SCH (22:19)
[2020-03-15] MEDS: LAMOTRIGINE 100 MG TABLET PO SCH (22:20)
[2020-03-16 05:13] LABS: HEMATOCRIT 32.8 % (36.0-47.0); HEMOGLOBIN 11.4 g/dL (12.0-15.5); MEAN CORPUSCULAR HEMOGLOBIN 29.4 pg (27.0-33.4); MEAN CORPUSCULAR HGB CONC 34.8 g/dL (32.0-36.0); MEAN CORPUSCULAR VOLUME 84 fl (80-97); PLATELET COUNT 248 10^3/uL (150-450); RED BLOOD COUNT 3.89 10^6/uL (3.72-5.28); RED CELL DISTRIBUTION WIDTH 15.4 % (11.5-14.0); WHITE BLOOD COUNT 9.9 10^3/uL (4.0-10.5)
[2020-03-16] MEDS: HEPARIN SOD (PORCINE) 5,000 UNIT/ML 1 ML VIAL SUBCUT SCH (05:29)
[2020-03-16] MEDS: BUSPIRONE HCL 10 MG TABLET PO SCH (05:30)
[2020-03-16 05:31] LABS: ANION GAP 8 (5-19); BLOOD UREA NITROGEN 16 mg/dL (7-20); CALCIUM 9.2 mg/dL (8.4-10.2); CARBON DIOXIDE 29 mmol/L (22-30); CHLORIDE 101 mmol/L (98-107); CHOLESTEROL 265.22 mg/dL (0-200); GLUCOSE 125 mg/dL (75-110); POTASSIUM 3.7 mmol/L (3.6-5.0); TRIGLYCERIDES 317 mg/dL (<150)
[2020-03-16 05:41] LABS: DIRECT LDL 182 mg/dL (<100)
[2020-03-16 05:45] LABS: VLDL CHOLESTEROL 63.4 mg/dL (10-31)
[2020-03-16] MEDS: LAMOTRIGINE 100 MG TABLET PO SCH (09:38)
[2020-03-16] MEDS: DOCUSATE SODIUM 100 MG CAPSULE PO SCH (09:39)
[2020-03-16] MEDS: BACLOFEN 10 MG TABLET PO SCH (09:39)
[2020-03-16] MEDS: GABAPENTIN 400 MG CAPSULE PO SCH (09:39)
[2020-03-16] MEDS: POTASSIUM CHLORIDE 10 MEQ TABLET.ER PO SCH (09:39)
[2020-03-16] MEDS ORDERED: COLCHICINE 0.6 MG TABLET PO SCH (10:00)
[2020-03-16] MEDS ORDERED: METOPROLOL SUCCINATE 25 MG TAB.SR.24H PO SCH (10:00)
[2020-03-16] MEDS ORDERED: (PENDING PHARMACY ID) (Lamotrigine [Lamictal Xr] 200 MG) PO SCH (10:00)
[2020-03-16] MEDS ORDERED: CHLORTHALIDONE 25 MG TABLET PO SCH (10:00)
[2020-03-16] MEDS ORDERED: LURASIDONE HCL 40 MG TABLET PO SCH (10:00)
--- NOTE | 2020-03-16 10:38 | PDOC DISCHARGE SUMMARY ---
Impression - Admit/DC Date/PCP Admission Date/Primary Care Provider: 03/15/20 03:06 Discharge Date: 03/16/20 - Assessment Summary: Patient will be admitted on observation status to the medical floor in a telemetry bed where she will receive routine supportive and symptomatic cares. A cardiology consultation with Dr. Lenz will be obtained to consider the patient for a cardiac stress test. Serial cardiac enzymes will be obtained. Before meals and at bedtime Accu-Cheks will be obtained with sliding scale insulin used for hyperglycemia and a hypoglycemic protocol in place. A cardiac and diabetic restricted diet will be ordered. Additional laboratory and/or radiographic evaluations will be obtained as appropriate. Smoking cessation is advised and counseled briefly at the bedside. A nicotine replacement patch is available for the patient's use, if desired. She will use morphine sulfate 2 to 4 mg IV every 2 hours as needed for pain not responding to nitroglycerin. She will use Ativan 1 mg IV every 4 hours as needed for anxiety or restlessness. - Additional Information Resuscitation Status: Full Code Discharge Diet: As Tolerated, Cardiac, Diabetic Discharge Activity: Activity As Tolerated, Balance Activity w/Rest Referrals: LIVE LENZ MD [ACTIVE STAFF] - 03/27/20 11:45 am Prescriptions: Colchicine [Colcrys 0.6 mg Tablet] 0.6 mg PO Q12 #10 tablet Nicotine [Nicoderm 21 mg/24 Hr Transderm Patch] 1 each TD DAILYP PRN #30 patch.td24 PRN Reason: Home Medications: Atorvastatin Calcium [Lipitor 40 mg Tablet] 40 mg PO QHS 03/15/20 Baclofen [Baclofen 10 mg Tablet] 10 mg PO BID 03/15/20 Buspirone HCl [Buspar 10 mg Tablet] 10 mg PO Q8 03/15/20 Chlorthalidone [Hygroton 25 mg Tablet] 25 mg PO DAILY 03/15/20 Gabapentin [Neurontin 400 mg Capsule] 800 mg PO QID 03/15/20 Hydroxyzine Pamoate [Vistaril 50 mg Capsule] 50 mg PO HSP PRN 03/15/20 Lamotrigine [Lamictal Xr] 200 mg PO DAILY 03/15/20 Lurasidone HCl [Latuda 40 mg Tablet] 40 mg PO DAILY 03/15/20 Metoprolol Succinate [Toprol Xl 25 mg Tab.sr] 25 mg PO DAILY 03/15/20 Potassium Chloride [Klor-Con 10 Meq Tablet ER] 20 meq PO BID 03/15/20 Prazosin HCl [Minipress] 1 mg PO QHS 03/15/20 Ziprasidone HCl [Geodon 40 mg Capsule] 80 mg PO Q12 03/15/20 Colchicine [Colcrys 0.6 mg Tablet] 0.6 mg PO Q12 #10 tablet 03/16/20 Nicotine [Nicoderm 21 mg/24 Hr Transderm Patch] 1 each TD DAILYP PRN #30 patch.td24 03/16/20 History of Present Illiness History of Present Illness: Per Admitting Physician: "REBECCA OJEDA is a 49 year old female who presented to the emergency room with acute chest pressure. She admits accidentally taking two 1 mg prazosin tablets at bedtime and this caused her concern as she was lying in bed and suddenly began having moderate pressure in her substernal chest which radiated down her right arm persisting continuously, until she was treated in the emergency room. The pain was exacerbated by exertion or activity. She admits accompanying mild dyspnea but denies denies other associated or accompanying signs and symptoms. She admits prior similar episodes. She has not identified any additional aggravating or ameliorating factors for her chest pressure. In the emergency room her chest pain was resolved with sublingual nitroglycerin x1, aspirin and supplemental oxygen. She was found to have a nonischemic EKG and cardiac enzymes which were within the normal range initially. She was subsequently admitted to observation status for further evaluation and treatment." Hospital Course Hospital Course: Per Admitting Physician: "REBECCA OJEDA is a 49 year old female who presented to the emergency room with acute chest pressure. She admits accidentally taking two 1 mg prazosin tablets at bedtime and this caused her concern as she was lying in bed and suddenly began having moderate pressure in her substernal chest which radiated down her right arm persisting continuously, until she was treated in the emergency room. The pain was exacerbated by exertion or activity. She admits accompanying mild dyspnea but denies denies other associated or accompanying signs and symptoms. She admits prior similar episodes. She has not identified any additional aggravating or ameliorating factors for her chest pressure. In the emergency room her chest pain was resolved with sublingual nitroglycerin x1, aspirin and supplemental oxygen. She was found to have a nonischemic EKG and cardiac enzymes which were within the normal range initially. She was subsequently admitted to observation status for further evaluation and treatment." Patient medically chest pain. Troponin remain negative. Cardiology consulted who stated patient is not having cardiac chest pain she can have an outpatient nuclear stress test. Patient was started on colchicine by business law instructor for musculoskeletal chest pain. Per cardiology: "1. Chest pain. This is clearly noncardiac chest pain. Hence I discussed with the hospitalist that at present there is no hurry to get an inpatient Cardiolite nuclear stress test. But the patient does have multiple risk factors. Hence will later recommend that the patient have an IV Lexiscan Cardiolite stress test. This can be done as an outpatient. This is due to the fact the patient's chest wall pain needs to be controlled first prior to in any confusion arising during the stress test regarding the patient's etiology of chest pain. We will give a trial of colchicine to see if this will take care of the patient chest wall pain would continue aspirin and beta-[place] and statin. 2. Hypertension: Well-controlled 3. Diabetes mellitus.: Continue current treatment. 4. Hyperlipidemia: Continue statin. 5. History of anxiety and depression 6. Chronic pain syndrome 7. History of multiple psychiatric problems/illnesses namely schizophrenia, bipolar disorder and seizure affective disorder. History of nightmares. 8. Morbid obesity. 9. Multiple CAD risk factors namely age, hypertension, diabetes mellitus, hyperlipidemia, and family history of coronary artery disease." Physical Exam Vital Signs: Temp Pulse Resp BP Pulse Ox 97.9 F 87 17 115/50 L 93 03/16/20 07:45 03/16/20 07:45 03/16/20 07:45 03/16/20 07:45 03/16/20 07:45 Intake & Output 03/15/20 03/16/20 03/17/20 06:59 06:59 06:59 Intake Total 960 Balance 960 Weight 109 kg 111.6 kg General appearance: PRESENT: no acute distress, morbidly obese, well-developed, well-nourished Head exam: PRESENT: atraumatic, normocephalic Eye exam: PRESENT: conjunctiva pink Mouth exam: PRESENT: moist Respiratory exam: PRESENT: clear to auscultation neno. ABSENT: rales, rhonchi, wheezes GI/Abdominal exam: PRESENT: normal bowel sounds, soft. ABSENT: distended, guarding, mass, organolmegaly, rebound, tenderness Neurological exam: PRESENT: alert, awake, oriented to person, oriented to place, oriented to time, oriented to situation Psychiatric exam: PRESENT: appropriate affect, normal mood Skin exam: PRESENT: dry, intact, warm Results Laboratory Results: WBC 9.9 10^3/uL (4.0-10.5) 03/16/20 04:43 RBC 3.89 10^6/uL (3.72-5.28) 03/16/20 04:43 Hgb 11.4 g/dL (12.0-15.5) L 03/16/20 04:43 Hct 32.8 % (36.0-47.0) L 03/16/20 04:43 MCV 84 fl (80-97) 03/16/20 04:43 MCH 29.4 pg (27.0-33.4) 03/16/20 04:43 MCHC 34.8 g/dL (32.0-36.0) 03/16/20 04:43 RDW 15.4 % (11.5-14.0) H 03/16/20 04:43 Plt Count 248 10^3/uL (150-450) 03/16/20 04:43 Lymph % (Auto) 31.9 % (13-45) 03/15/20 01:06 Patrick % (Auto) 7.2 % (3-13) 03/15/20 01:06 Eos % (Auto) 1.5 % (0-6) 03/15/20 01:06 Baso % (Auto) 0.1 % (0-2) 03/15/20 01:06 Absolute Neuts (auto) 7.8 10^3/uL (1.7-8.2) 03/15/20 01:06 Absolute Lymphs (auto) 4.2 10^3/uL (0.5-4.7) 03/15/20 01:06 Absolute Monos (auto) 0.9 10^3/uL (0.1-1.4) 03/15/20 01:06 Absolute Eos (auto) 0.2 10^3/uL (0.0-0.6) 03/15/20 01:06 Absolute Basos (auto) 0.0 10^3/uL (0.0-0.2) 03/15/20 01:06 Seg Neutrophils % 59.3 % (42-78) 03/15/20 01:06 Sodium 137.9 mmol/L (137-145) 03/16/20 04:43 Potassium 3.7 mmol/L (3.6-5.0) 03/16/20 04:43 Chloride 101 mmol/L (98-107) 03/16/20 04:43 Carbon Dioxide 29 mmol/L (22-30) 03/16/20 04:43 Anion Gap 8 (5-19) 03/16/20 04:43 BUN 16 mg/dL (7-20) 03/16/20 04:43 Creatinine 0.88 mg/dL (0.52-1.25) 03/16/20 04:43 Est GFR ( Amer) > 60 (>60) 03/16/20 04:43 Est GFR (MDRD) Non-Af > 60 (>60) 03/16/20 04:43 Glucose 125 mg/dL (75-110) H 03/16/20 04:43 POC Glucose 139 mg/dL (70-110) H 03/16/20 06:24 Hemoglobin A1c % 6.2 % (4.7-6.0) H 03/16/20 04:43 Calcium 9.2 mg/dL (8.4-10.2) 03/16/20 04:43 Magnesium 2.0 mg/dL (1.6-2.3) 03/16/20 04:43 Total Bilirubin 0.7 mg/dL (0.2-1.3) 03/15/20 01:06 Direct Bilirubin 0.3 mg/dL (0.0-0.4) 03/15/20 01:06 Neonat Total Bilirubin Not Reportable 03/15/20 01:06 Neonat Direct Bilirubin Not Reportable 03/15/20 01:06 Neonat Indirect Bili Not Reportable 03/15/20 01:06 AST 25 U/L (14-36) 03/15/20 01:06 ALT 20 U/L (<35) 03/15/20 01:06 Alkaline Phosphatase 83 U/L (38-126) 03/15/20 01:06 Creatine Kinase 71 U/L (30-135) 03/15/20 18:23 CK-MB (CK-2) 1.09 ng/mL (<4.55) 03/15/20 18:23 Troponin I < 0.012 ng/mL 03/15/20 18:23 Total Protein 7.6 g/dL (6.3-8.2) 03/15/20 01:06 Albumin 4.5 g/dL (3.5-5.0) 03/15/20 01:06 Triglycerides 317 mg/dL (<150) H 03/16/20 04:43 Cholesterol 265.22 mg/dL (0-200) H 03/16/20 04:43 LDL Cholesterol Direct 182 mg/dL (<100) H 03/16/20 04:43 VLDL Cholesterol 63.4 mg/dL (10-31) H 03/16/20 04:43 HDL Cholesterol 51 mg/dL (>40) 03/16/20 04:43 TSH 2.88 uIU/mL (0.47-4.68) 03/16/20 04:43 03/15/20 03/15/20 03/15/20 01:06 03:50 11:33 CK-MB (CK-2) 1.31 1.05 Troponin I < 0.012 < 0.012 < 0.012 03/15/20 18:23 CK-MB (CK-2) 1.09 Troponin I < 0.012 Impressions: Chest X-Ray 03/15/20 00:46 IMPRESSION: 1. No acute pulmonary process identified. Plan Plan of Treatment: Follow-up with PCP Follow-up with cardiology to arrange outpatient stress test Colchicine for 5 days Time Spent: Greater than 30 Minutes Stroke Is this a Stroke Patient?: No Acute Heart Failure Is this a Heart Failure Patient?: No
[2020-03-16] MEDS: LEVALBUTEROL HCL NEB 0.63 MG/3 ML AMPUL NEB PRN (10:42)
[2020-03-16 10:50] VITALS: BP 128/57
[2020-03-16] MEDS: INSULIN REG, HUMAN 100 UNIT/ML 3 ML VIAL (PYX) SUBCUT SCH ×2 (12:06→12:07)
[2020-03-16] MEDS: ZIPRASIDONE HCL 40 MG CAPSULE PO SCH (12:07)
--- NOTE | 2020-03-16 21:58 | Progress Note ---
Provider Note Provider Note: CARDIOLOGY PROGRESS NOTE by Dr. Beatriz Krishnamurthy on 03/16/2020. SUBJECTIVE: The patient states that colchicine has helped her chest wall pain and she states is almost resolved. There is no shortness of breath. There is no PND orthopnea or leg edema. There is no arrhythmias seen. PHYSICAL EXAMINATION: The patient is morbidly obese. In no acute distress. Selected Entries 03/16/20 03/16/20 07:45 10:42 Temperature 97.9 F Temperature Oral Source Pulse Rate 87 Respiratory 17 Rate Blood Pressure 115/50 L Blood Pressure 71 Mean BP Location Right Arm BP Position Supine O2 Sat by Pulse 93 Oximetry Fraction of 21 Inspired Oxygen (FIO2) Oxygen Delivery Room Air Method HEAD: Head is atraumatic normocephalic. Eyes: Pupils are equal round regular reactive light accommodation extraocular movements are normal there is no congenital pallor there is no scleral icterus. Ears: External auditory canals are clear, there are no lesions of the pinna. Nose: No deviated nasal septum and no inflammation of the nasal mucous membrane. Mouth: Mucous membranes of mouth are moist tongue is moist there is no ulcers there is no bleeding from the gums. Throat: There is no redness of the oropharynx there is no exudates. Skin: There is no petechia or ecchymosis there is no skin lesions or skin rashes. Neck: Neck is supple there is no JVD carotids equal there is no bruit there is no lymphadenopathy there is no neck stiffness. There is no goiter trachea central lungs: Lungs are clear to auscultation percussion there is no accessory muscles of respiration in use. There is no rhonchi rales or wheezing. There is no chest wall tenderness today on examination.. HEART: S1-S2 is heard there is no S3 gallop there is no S4 gallop S1 is of normal intensity. There no rub. The systolic murmur in the left sternal border and apex without radiation. Abdomen: Abdomen is soft nontender there is no paraspinal megaly bowel sounds well heard there is no tender areas of masses. There is no rebound guarding or rigidity. Extremities: Femorals are well felt there is no femoral bruits neck pulses are well felt there is no pedal edema there is no DVT or cellulitis there is no cyanosis or clubbing there is no DVT or cellulitis. There is no calf tenderness. WIND FARM SUPPORT SPECIALIST: The patient is awake alert oriented 3 with no focal deficits. Psychiatric: The patient judgment and insight are intact and her affect is normal. Labs- All tests 24 hr 03/16/20 03/16/20 03/16/20 04:43 04:43 04:43 WBC 9.9 RBC 3.89 Hgb 11.4 L Hct 32.8 L MCV 84 MCH 29.4 MCHC 34.8 RDW 15.4 H Plt Count 248 Sodium 137.9 Potassium 3.7 Chloride 101 Carbon Dioxide 29 Anion Gap 8 BUN 16 Creatinine 0.88 Est GFR ( Amer) > 60 Est GFR (MDRD) Non-Af > 60 Glucose 125 H POC Glucose Hemoglobin A1c % 6.2 H Calcium 9.2 Magnesium 2.0 Triglycerides 317 H Cholesterol 265.22 H LDL Cholesterol Direct 182 H VLDL Cholesterol 63.4 H HDL Cholesterol 51 TSH 03/16/20 03/16/20 04:43 06:24 WBC RBC Hgb Hct MCV MCH MCHC RDW Plt Count Sodium Potassium Chloride Carbon Dioxide Anion Gap BUN Creatinine Est GFR ( Amer) Est GFR (MDRD) Non-Af Glucose POC Glucose 139 H Hemoglobin A1c % Calcium Magnesium Triglycerides Cholesterol LDL Cholesterol Direct VLDL Cholesterol HDL Cholesterol TSH 2.88 Chest X-Ray 03/15/20 00:46 IMPRESSION: 1. No acute pulmonary process identified. IMPRESSION/RECOMMENDATION: 1. Chest pain. This is clearly noncardiac chest pain. This is resolved almost totally with colchicine. And to continue colchicine for at least 5 to 7 days. Would recommend that the patient have an echo and an outpatient IV Lexiscan Cardiolite stress test. The patient is desirous of following up with me. 2. Hypertension: Well-controlled 3. Diabetes mellitus.: Continue current treatment. 4. Hyperlipidemia: Continue statin. 5. History of anxiety and depression 6. Chronic pain syndrome 7. History of multiple psychiatric problems/illnesses namely schizophrenia, bipolar disorder and seizure affective disorder. History of nightmares. 8. Morbid obesity. 9. Multiple CAD risk factors namely age, hypertension, diabetes mellitus, hyperlipidemia, and family history of coronary artery disease. Medications reviewed. Medical regimen and management plan discussed with attending provider on the case. Medical decision making is of moderate complexity. Would recommend discharging the patient. We will follow the patient up in the office. Medical decision making is of moderate complexity. 40 minutes spent on the patient with more than 50% of time spent in direct patient care.
== END 2020-03-16 11:54 | disposition home or self-care (01) ==
LOC: ER 23:31 → EH 03-15 03:06 → INTOOBSV 03-15 03:06 → 4N 03-15 04:20
PROVIDERS: ADMIT Emergency Medicine; ATTEND Internal Medicine
DX: R07.89 Other chest pain (principal); R06.09 Other forms of dyspnea; I10 Essential (primary) hypertension; E11.9 Type 2 diabetes mellitus without complications; E78.5 Hyperlipidemia, unspecified; G89.4 Chronic pain syndrome; E66.01 Morbid (severe) obesity due to excess calories; F51.5 Nightmare disorder; F41.9 Anxiety disorder, unspecified; D72.829 Elevated white blood cell count, unspecified; E87.6 Hypokalemia; M54.41 Lumbago with sciatica, right side; F31.9 Bipolar disorder, unspecified; F20.9 Schizophrenia, unspecified; G40.802 Other epilepsy, not intractable, without status epilepticus; F17.210 Nicotine dependence, cigarettes, uncomplicated; Z79.899 Other long term (current) drug therapy; Z82.49 Family history of ischemic heart disease and other diseases of the circulatory system
CPT/HCPCS: 93005; 99285; 36415 ×2; 82553; 82962 ×2; 82550; 83735; 84443; 85025; 85027; 80048; 80053; 84484; 83036; 80061; 71045; 93010; 94640 ×2; 99406; G0378 ×2; A9270 ×22; J1644 ×2; J2270; J3490 ×3; J3480

== ENCOUNTER 2020-04-05 15:43 | Emergency (ER) | payer MEDICARE, MEDICAID ==
[2020-04-05] MEDS ORDERED: ONDANSETRON HCL INJ/PF 4 MG/2 ML SDV IV ONE (16:15)
--- NOTE | 2020-04-05 16:15 | ER Document Report ---
ED Medical Screen (RME) - General Chief Complaint: Abdominal Pain Stated Complaint: ABDOMINAL PAIN Time Seen by Provider: 04/05/20 16:08 - HPI Notes: 04/05/20 16:13 50-year-old female with past medical history for hypertension, diabetes, mental health disorder, GERD, hyperlipidemia to the emergency department with complaints of acute onset lower abdominal pain that began just prior to arrival. She states she was laying down when the pain started. She states that 5 out of 5 in pain. She denies any vomiting but does admit to nausea. She states that she has not urinated since the symptoms started. She has had a history of kidney stones in the past but this does not feel the same. Denies any fevers or chills. Denies any diarrhea. Patient fairly uncomfortable in triage. She has tenderness to palpation to the suprapubic abdomen predominantly. Exam is limited given she is in a chair in triage. I performed a brief medical screening exam on the patient determined that the patient needs further evaluation and management by main side provider. I have placed initial orders to help expedite care. - Related Data Allergies/Adverse Reactions: latex Allergy (Severe, Verified 03/14/20 23:50) azithromycin [From Zithromax Z-Domingo] Allergy (Verified 03/14/20 23:50) tetracycline Allergy (Verified 03/14/20 23:50) risperidone [From Risperdal] Adverse Reaction (Verified 04/05/20 16:08) Past Medical History - Past Medical History Cardiac Medical History: Reports: Hx Hypercholesterolemia, Hx Hypertension Denies: Hx Atrial Fibrillation, Hx Congestive Heart Failure, Hx Coronary Artery Disease, Hx DVT, Hx Heart Attack, Hx Peripheral Vascular Disease, Hx Pulmonary Embolism Pulmonary Medical History: Reports: Hx Asthma, Hx Bronchitis Denies: Hx COPD Neurological Medical History: Denies: Hx Seizures Endocrine Medical History: Reports: Hx Diabetes Mellitus Type 2. Denies: Hx Diabetes Mellitus Type 1, Hx Hyperthyroidism, Hx Hypothyroidism GI Medical History: Reports: Hx Gastroesophageal Reflux Disease. Denies: Hx Cirrhosis, Hx Crohn's Disease, Hx Hepatitis, Hx Ulcerative Colitis Musculoskeltal Medical History: Reports Hx Arthritis, Denies Hx Gout Skin Medical History: Denies Hx Eczema, Denies Hx Psoriasis Psychiatric Medical History: Reports: Hx Depression Infectious Medical History: Denies: Hx Hepatitis Past Surgical History: Reports: Hx Appendectomy, Hx Cholecystectomy, Hx Hysterectomy, Hx Orthopedic Surgery - Multiple back and knee surgeries, Other - Colonoscopy and EGD - Immunizations Hx Diphtheria, Pertussis, Tetanus Vaccination: Yes - Needs tetanus booster Physical Exam - Vital signs Vitals: Temp Pulse Resp BP Pulse Ox 98.6 F 92 20 117/58 L 95 04/05/20 15:51 04/05/20 15:51 04/05/20 15:51 04/05/20 15:51 04/05/20 15:51 Course - Vital Signs Vital signs: Temp Pulse Resp BP Pulse Ox 98.6 F 92 20 117/58 L 95 04/05/20 15:51 04/05/20 15:51 04/05/20 15:51 04/05/20 15:51 04/05/20 15:51
[2020-04-05 16:46] LABS: ABSOLUTE EOSINOPHILS # (AUTO) 0.2 10^3/uL (0.0-0.6); ABSOLUTE LYMPHOCYTES (AUTO) 3.5 10^3/uL (0.5-4.7); ABSOLUTE MONOCYTES (AUTO) 0.8 10^3/uL (0.1-1.4); ABSOLUTE NEUT (AUTO) 8.2 10^3/uL (1.7-8.2); BASOPHILS % (AUTO) 0.4 % (0-2); EOSINOPHILS % (AUTO) 1.4 % (0-6); HEMATOCRIT 37.5 % (36.0-47.0); HEMOGLOBIN 12.8 g/dL (12.0-15.5); LYMPHOCYTES % (AUTO) 27.7 % (13-45); MEAN CORPUSCULAR HEMOGLOBIN 28.7 pg (27.0-33.4); MEAN CORPUSCULAR HGB CONC 34.1 g/dL (32.0-36.0); MEAN CORPUSCULAR VOLUME 84 fl (80-97); MONOCYTES % (AUTO) 6.1 % (3-13); PLATELET COUNT 298 10^3/uL (150-450); RED BLOOD COUNT 4.44 10^6/uL (3.72-5.28); RED CELL DISTRIBUTION WIDTH 14.9 % (11.5-14.0); SEGMENTED NEUTROPHILS % (AUTO) 64.4 % (42-78); TOTAL CELLS COUNTED % (AUTO) 100 %; WHITE BLOOD COUNT 12.7 10^3/uL (4.0-10.5)
[2020-04-05 16:58] LABS: APPEARANCE,URINE CLOUDY; BILIRUBIN,URINE NEGATIVE (NEGATIVE); COLOR,URINE YELLOW; GLUCOSE, URINE NEGATIVE (NEGATIVE); KETONES,URINE NEGATIVE (NEGATIVE); PROTEIN,URINE 30 mg/dL (NEGATIVE); URINE SPECIFIC GRAVITY 1.021
[2020-04-05 17:04] LABS: ALBUMIN 4.2 g/dL (3.5-5.0); ALKALINE PHOSPHATASE 72 U/L (38-126); ANION GAP 8 (5-19); ASPARTATE AMINO TRANSFERASE 28 U/L (14-36); BILIRUBIN,DIRECT 0.3 mg/dL (0.0-0.4); BILIRUBIN,TOTAL 0.6 mg/dL (0.2-1.3); BLOOD UREA NITROGEN 11 mg/dL (7-20); CALCIUM 9.5 mg/dL (8.4-10.2); CARBON DIOXIDE 31 mmol/L (22-30); CHLORIDE 101 mmol/L (98-107); GLUCOSE 113 mg/dL (75-110); POTASSIUM 3.3 mmol/L (3.6-5.0)
[2020-04-05] MEDS ORDERED: MORPHINE SULFATE 10 MG/ML INJ IV ONE (17:42)
--- NOTE | 2020-04-05 17:46 | ER Document Report ---
ED GI/ - General Chief Complaint: Abdominal Pain Stated Complaint: ABDOMINAL PAIN Time Seen by Provider: 04/05/20 16:08 Primary Care Provider: RANDY WALDEN MD [Primary Care Provider] - Follow up as needed Mode of Arrival: Medic Information source: Patient Notes: 50-year-old female presenting to the emergency department chief complaint of sudden onset right lower quadrant abdominal pain. Patient reports the pain came on suddenly and is very severe. She reports associated nausea but denies any vomiting, diarrhea, fever or chills. Patient reports the pain hurts worse with any movement. She states if she is in the position it makes the pain slightly tolerable. She has had multiple abdominal surgeries in the past as outlined in her history. - Related Data Allergies/Adverse Reactions: latex Allergy (Severe, Verified 04/05/20 18:58) azithromycin [From Zithromax Z-Domingo] Allergy (Verified 04/05/20 18:58) tetracycline Allergy (Verified 04/05/20 18:58) risperidone [From Risperdal] Adverse Reaction (Verified 04/05/20 18:58) Past Medical History - General Information source: Patient - Social History Smoking Status: Current Every Day Smoker Family History: DM, Hyperlipidemia, Hypertension. denies: CAD, Malignancy - Past Medical History Cardiac Medical History: Reports: Hx Hypercholesterolemia, Hx Hypertension Denies: Hx Atrial Fibrillation, Hx Congestive Heart Failure, Hx Coronary Artery Disease, Hx DVT, Hx Heart Attack, Hx Peripheral Vascular Disease, Hx Pulmonary Embolism Pulmonary Medical History: Reports: Hx Asthma, Hx Bronchitis Denies: Hx COPD Neurological Medical History: Denies: Hx Seizures Endocrine Medical History: Reports: Hx Diabetes Mellitus Type 2. Denies: Hx Diabetes Mellitus Type 1, Hx Hyperthyroidism, Hx Hypothyroidism GI Medical History: Reports: Hx Gastroesophageal Reflux Disease. Denies: Hx Cirrhosis, Hx Crohn's Disease, Hx Hepatitis, Hx Ulcerative Colitis Musculoskeletal Medical History: Reports Hx Arthritis, Denies Hx Gout Skin Medical History: Denies Hx Eczema, Denies Hx Psoriasis Psychiatric Medical History: Reports: Hx Depression Infectious Medical History: Denies: Hx Hepatitis Past Surgical History: Reports: Hx Abdominal Surgery - Exploratory laparotomy, Hx Appendectomy, Hx Cholecystectomy, Hx Herniorrhaphy - with mesh, Hx Hysterectomy, Hx Orthopedic Surgery - Multiple back and knee surgeries, Other - Colonoscopy and EGD - Immunizations Hx Diphtheria, Pertussis, Tetanus Vaccination: Yes - Needs tetanus booster Review of Systems - Review of Systems Gastrointestinal: Abdominal pain, Nausea -: Yes All other systems reviewed and negative Physical Exam - Vital signs Vitals: Temp Pulse Resp BP Pulse Ox 98.6 F 92 20 117/58 L 95 04/05/20 15:51 04/05/20 15:51 04/05/20 15:51 04/05/20 15:51 04/05/20 15:51 - Notes Notes: PHYSICAL EXAMINATION: GENERAL: Appears to be in moderate distress, laying in bed in position with her knees pulled to her chest. HEAD: Atraumatic, normocephalic. EYES: Pupils equal round and reactive to light, extraocular movements intact, conjunctiva are normal. ENT: Nares patent, oropharynx clear without exudates. Moist mucous membranes. NECK: Normal range of motion, supple without lymphadenopathy LUNGS: Breath sounds clear to auscultation bilaterally and equal. No wheezes rales or rhonchi. HEART: Regular rate and rhythm without murmurs ABDOMEN: Tenderness in the right lower quadrant. Female : deferred Musculoskeletal: Normal range of motion, no pitting or edema. No cyanosis. NEUROLOGICAL: Cranial nerves grossly intact. Normal speech, normal gait. Normal sensory, motor exams PSYCH: Normal mood, normal affect. SKIN: Warm, Dry, normal turgor, no rashes or lesions noted. Course - Re-evaluation Re-evalutation: Laboratory 04/05/20 04/05/20 04/05/20 16:30 16:30 16:30 WBC 12.7 H RBC 4.44 Hgb 12.8 Hct 37.5 MCV 84 MCH 28.7 MCHC 34.1 RDW 14.9 H Plt Count 298 Lymph % (Auto) 27.7 [place] % (Auto) 6.1 Eos % (Auto) 1.4 Baso % (Auto) 0.4 Absolute Neuts (auto) 8.2 Absolute Lymphs (auto) 3.5 Absolute Monos (auto) 0.8 Absolute Eos (auto) 0.2 Absolute Basos (auto) 0.0 Seg Neutrophils % 64.4 PT INR APTT Sodium 139.6 Potassium 3.3 L Chloride 101 Carbon Dioxide 31 H Anion Gap 8 BUN 11 Creatinine 0.93 Est GFR ( Amer) > 60 Est GFR (MDRD) Non-Af > 60 Glucose 113 H Calcium 9.5 Total Bilirubin 0.6 Direct Bilirubin 0.3 Neonat Total Bilirubin Not Reportable Neonat Direct Bilirubin Not Reportable Neonat Indirect Bili Not Reportable AST 28 ALT 25 Alkaline Phosphatase 72 Total Protein 7.0 Albumin 4.2 Lipase 195.4 Urine Color YELLOW Urine Appearance CLOUDY Urine pH 6.0 Ur Specific [place] 1.021 Urine Protein 30 H Urine Glucose (UA) NEGATIVE Urine Ketones NEGATIVE Urine Blood NEGATIVE Urine Nitrite (Reflex) NEGATIVE Urine Bilirubin NEGATIVE Urine Urobilinogen 2.0 H Leukocyte Esterase Rfl LARGE H Urine RBC (Auto) 9 Urine Bacteria (Auto) 1+ Urine WBC (Reflex) 27 Squamous Epi Cells Auto 28 Urine Mucus (Auto) MANY Urine Ascorbic Acid NEGATIVE 04/05/20 16:30 WBC RBC Hgb Hct MCV MCH MCHC RDW Plt Count Lymph % (Auto) [place] % (Auto) Eos % (Auto) Baso % (Auto) Absolute Neuts (auto) Absolute Lymphs (auto) Absolute Monos (auto) Absolute Eos (auto) Absolute Basos (auto) Seg Neutrophils % PT 12.7 INR 0.93 APTT 30.0 Sodium Potassium Chloride Carbon Dioxide Anion Gap BUN Creatinine Est GFR ( Amer) Est GFR (MDRD) Non-Af Glucose Calcium Total Bilirubin Direct Bilirubin Neonat Total Bilirubin Neonat Direct Bilirubin Neonat Indirect Bili AST ALT Alkaline Phosphatase Total Protein Albumin Lipase Urine Color Urine Appearance Urine pH Ur Specific [place] Urine Protein Urine Glucose (UA) Urine Ketones Urine Blood Urine Nitrite (Reflex) Urine Bilirubin Urine Urobilinogen Leukocyte Esterase Rfl Urine RBC (Auto) Urine Bacteria (Auto) Urine WBC (Reflex) Squamous Epi Cells Auto Urine Mucus (Auto) Urine Ascorbic Acid Abdomen/Pelvis CT 04/05/20 17:42 IMPRESSION: 1. Tree-in-bud changes in both lower lung naylor. Cannot exclude bronchiolitis. 2. Mild hepatic steatosis. 3. No acute finding in the abdomen or pelvis. Patient had no pain relief with the morphine. Dr. Gandhi came to bedside to evaluate the patient. He reports he is concerned for possible mesenteric ischemia based on patient's presentation. He did review the CT. Patient had no relief with the Toradol. IV fluids infusing. Oxygen on 2 L. She has now been given a dose of IV Dilaudid. I have spoken with the on-call surgeon, Dr. Salazar, no surgical need at this time based upon CT report. Dr. Salazar came to the bedside to evaluate the patient. He also reviewed the CT with me. He feels that there is a large stool burden in the a sending colon. He evaluated the patient, her abdomen is benign. She will be discharged home shortly. - Vital Signs Vital signs: Temp Pulse Resp BP Pulse Ox 98.6 F 92 13 123/59 L 96 04/05/20 15:51 04/05/20 15:51 04/05/20 19:01 04/05/20 19:01 04/05/20 19:01 - Laboratory Result Diagrams: 04/05/20 16:30 04/05/20 16:30 Laboratory results interpreted by me: 04/05/20 04/05/20 04/05/20 16:30 16:30 16:30 WBC 12.7 H RDW 14.9 H Potassium 3.3 L Carbon Dioxide 31 H Glucose 113 H Urine Protein 30 H Urine Urobilinogen 2.0 H Leukocyte Esterase Rfl LARGE H Discharge - Discharge Clinical Impression: Abdominal pain Qualifiers: Abdominal location: unspecified location Qualified Code(s): R10.9 - Unspecified abdominal pain Constipation Qualifiers: Constipation type: unspecified constipation type Qualified Code(s): K59.00 - Constipation, unspecified Condition: Stable Disposition: HOME, SELF-CARE Additional Instructions: Drink the bottle of magnesium citrate as soon as you get home. Follow this by an 8 ounce glass of water. Follow-up with your primary care provider. Try to eat a diet high in fiber and drink plenty of water. Referrals: RANDY WALDEN MD [Primary Care Provider] - Follow up as needed
--- NOTE | 2020-04-05 18:40 | RADIOLOGY REPORT (SQ) ---
EXAM DESCRIPTION: CT ABD/PELVIS WITH IV ONLY IMAGES COMPLETED DATE/TIME: 04/05/2020 6:22 pm REASON FOR STUDY: sudden onset RLQ pain COMPARISON: None. TECHNIQUE: CT scan of the abdomen and pelvis performed using helical scanning technique with dynamic intravenous contrast injection. No oral contrast. Images reviewed with lung, soft tissue, and bone windows. Reconstructed coronal and sagittal MPR images reviewed. Delayed images for evaluation of the urinary system also acquired. All images stored on PACS. All CT scanners at this facility use dose modulation, iterative reconstruction, and/or weight based d osing when appropriate to reduce radiation dose to as low as reasonably achievable (ALARA). [facility]: Dose Right [facility]: CareDose [facility]: Dose Right [facility]: Teradose 4D [facility]: [employer] CONTRAST TYPE AND DOSE: contrast/concentration: Isovue 350.00 mmol/ml; Total Contrast Delivered: 100 .0 ml; Total Saline Delivered: 65.8 ml RENAL FUNCTION: BUN 11 creatinine 0.93 RADIATION DOSE: CT Rad equipment meets quality standard of care and radiation dose reduction techniq ues were employed. CTDIvol: 18.3 - 20.7 mGy. DLP: 2213 mGy-cm.. LIMITATIONS: None. FINDINGS: LOWER CHEST: Tree-in-bud changes in both lower lung naylor. LIVER: Mildly hypoattenuating. No masses. SPLEEN: Normal size. No focal lesions. PANCREAS: No masses. No significant calcifications. No adjacent inflammation or peripancreatic fluid collections. Pancreatic duct not dilated. GALLBLADDER: Surgically absent. ADRENAL GLANDS: No significant masses or asymmetry. RIGHT KIDNEY AND URETER: No solid masses. There is an 8 mm calcification which appears to be at the UPJ on the initial series. However, on the delayed images it can be seen that the ureter lies adjac ent to this calcification. No hydronephrosis or hydroureter. LEFT KIDNEY AND URETER: No solid masses. No significant calcifications. No hydronephrosis or hydr oureter. AORTA AND VESSELS: No aneurysm. No dissection. Renal arteries, SMA, celiac without stenosis. RETROPERITONEUM: No retroperitoneal adenopathy, hemorrhage or masses. BOWEL AND PERITONEAL CAVITY: No masses or inflammatory changes. No free fluid or peritoneal masses. APPENDIX: Surgically absent. PELVIS: Urinary bladder is not filled and not well evaluated. No pelvic mass or fluid collection. ABDOMINAL WALL: No masses. No hernias. BONES: Anterior spinal hardware at L4-5 and L5-S1. OTHER: No other significant finding. IMPRESSION: 1. Tree-in-bud changes in both lower lung naylor. Cannot exclude bronchiolitis. 2. Mild hepatic steatosis. 3. No acute finding in the abdomen or pelvis. TECHNICAL DOCUMENTATION: JOB ID: [id number] Quality ID # [id number]: Final reports with documentation of one or more dose reduction techniques (e.g., Au tomated exposure control, adjustment of the mA and/or kV according to patient size, use of iterative reconstruction technique) 2010 [employer] All Rights Reserved Reading location - IP/workstation name: [email or web address]
[2020-04-05] MEDS ORDERED: KETOROLAC TROMETHAMINE INJ/PF 30 MG/1 ML SDV IV ONE (18:56)
[2020-04-05] MEDS ORDERED: NORMAL SALINE 1000 ML 1,000 ML IV ONE (18:56)
[2020-04-05 19:26] LABS: INTERNATIONAL RATION (INR) 0.93; PROTHROMBIN TIME 12.7 SEC (11.4-15.4)
[2020-04-05] MEDS ORDERED: HYDROMORPHONE HCL INJ/PF 2 MG/ML AMPULE IV ONE (19:37)
[2020-04-05] MEDS ORDERED: MINERAL OIL 30 ML UDCUP PR ONE (20:43)
[2020-04-05] MEDS ORDERED: MAGNESIUM CITRATE 296 ML BOTTLE PO ONE (20:43)
[2020-04-05] MEDS ORDERED: DICYCLOMINE HCL INJ 20 MG/2 ML AMPULE IM ONE (22:53)
[2020-04-05 23:05] VITALS: BP 116/69
--- NOTE | 2020-04-06 00:56 | PDOC CONSULTATION ---
Consultation Consult Date: 04/05/20 Provider Consulted: SURGICAL SURGICALIST Consult reason:: abdominal pain History of Present Illness Admission Date/PCP: RANDY WALDEN MD History of Present Illness: REBECCA OJEDA is a 50 year old female seen at the request of the ER physician. This is a patient with an acute onset of right-sided abdominal pain today. She has a history of cholecystectomy and appendectomy in the remote past. The patient reports alternating constipation and diarrhea. She was recently started on Metformin, which has caused her some GI distress. She has a history of neph rolithiasis as well. Her symptoms have been crampy in nature. They wax and wane. At worst her pain is 8 out of 10, but it is not always that severe. The patient does report smoking history, but denies illegal drugs (like cocaine or methamphetamine) and alcohol. She reports nausea without vomiting. She denies any fevers or chills. She denies dizziness, orthostasis, chest pain, shortness of breath, melena, hematochezia, hematemesis, abdominal distention, blurry vision, headache. Past Medical History Cardiac Medical History: Reports: Hyperlipidema, Hypertension Denies: Atrial Fibrillation, Congestive Heart Failure, Coronary Artery Disease, DVT, Myocardial Infarction, Peripheral Vascular Disease, Pulmonary Embolism Pulmonary Medical History: Reports: Asthma, Bronchitis Denies: Chronic Obstructive Pulmonary Disease (COPD) Neurological Medical History: Denies: Seizures Endocrine Medical History: Reports: Diabetes Mellitus Type 2 Denies: Diabetes Mellitus Type 1, Hyperthyroidism, Hypothyroidism GI Medical History: Reports: Gastroesophageal Reflux Disease Denies: Cirrhosis, Crohn's Disease, Hepatitis, Ulcerative Colitis Musculoskeltal Medical History: Reports: Arthritis Denies: Gout Skin Medical History: Denies: Eczema, Psoriasis Psychiatric Medical History: Reports: Depression Hematology: Denies: Anemia, Bleeding Tendencies Past Surgical History Past Surgical History: Reports: Appendectomy, Cholecystectomy, Herniorrhaphy - with mesh, Hysterectomy, Orthopedic Surgery - Multiple back and knee surgeries, Other - Colonoscopy and EGD Social History Smoking Status: Current Every Day Smoker Frequency of Alcohol Use: None Hx Recreational Drug Use: No Drugs: None Hx Prescription Drug Abuse: No Family History Family History: DM, Hyperlipidemia, Hypertension. denies: CAD, Malignancy Parental Family History Reviewed: Yes Children Family History Reviewed: Yes Sibling(s) Family History Reviewed.: Yes Medication/Allergy Home Medications: Atorvastatin Calcium [Lipitor 40 mg Tablet] 40 mg PO QHS 03/15/20 Baclofen [Baclofen 10 mg Tablet] 10 mg PO BID 03/15/20 Buspirone HCl [Buspar 10 mg Tablet] 10 mg PO Q8 03/15/20 Chlorthalidone [Hygroton 25 mg Tablet] 25 mg PO DAILY 03/15/20 Gabapentin [Neurontin 400 mg Capsule] 800 mg PO QID 03/15/20 Hydroxyzine Pamoate [Vistaril 50 mg Capsule] 50 mg PO HSP PRN 03/15/20 Lamotrigine [Lamictal Xr] 200 mg PO DAILY 03/15/20 Lurasidone HCl [Latuda 40 mg Tablet] 40 mg PO DAILY 03/15/20 Metoprolol Succinate [Toprol Xl 25 mg Tab.sr] 25 mg PO DAILY 03/15/20 Potassium Chloride [Klor-Con 10 Meq Tablet ER] 20 meq PO BID 03/15/20 Prazosin HCl [Minipress] 1 mg PO QHS 03/15/20 Ziprasidone HCl [Geodon 40 mg Capsule] 80 mg PO Q12 03/15/20 Colchicine [Colcrys 0.6 mg Tablet] 0.6 mg PO Q12 #10 tablet 03/16/20 Nicotine [Nicoderm 21 mg/24 Hr Transderm Patch] 1 each TD DAILYP PRN #30 patch.td24 03/16/20 Allergies/Adverse Reactions: latex Allergy (Severe, Verified 04/05/20 18:58) azithromycin [From Zithromax Z-Domingo] Allergy (Verified 04/05/20 18:58) tetracycline Allergy (Verified 04/05/20 18:58) risperidone [From Risperdal] Adverse Reaction (Verified 04/05/20 18:58) Review of Systems Constitutional: ABSENT: anorexia, chills, fatigue, fever(s), headache(s) Eyes: ABSENT: visual disturbances Ears: ABSENT: hearing changes Cardiovascular: ABSENT: chest pain Respiratory: ABSENT: cough Gastrointestinal: PRESENT: abdominal pain, bloating, nausea. ABSENT: hematemesis, hematochezia, melena, vomiting Genitourinary: ABSENT: dysuria Musculoskeletal: ABSENT: back pain Integumentary: ABSENT: pruritus, rash Neurological: ABSENT: confusion, convulsions, dizziness Psychiatric: ABSENT: anxiety, depression Endocrine: ABSENT: cold intolerance, heat intolerance Hematologic/Lymphatic: ABSENT: easy bleeding, easy bruising Physical Exam Vital Signs: Temp Pulse Resp BP Pulse Ox 98.6 F 92 17 120/60 96 04/05/20 15:51 04/05/20 15:51 04/05/20 22:00 04/05/20 20:07 04/05/20 22:00 Intake & Output 04/04/20 04/05/20 04/06/20 06:59 06:59 06:59 Intake Total 1000 Balance 1000 Weight 108.862 kg General appearance: PRESENT: no acute distress, cooperative. ABSENT: disheveled Head exam: PRESENT: atraumatic, normocephalic Eye exam: PRESENT: EOMI, PERRLA. ABSENT: scleral icterus Mouth exam: PRESENT: moist, neck supple Neck exam: ABSENT: meningismus, tenderness, thyromegaly, tracheal deviation Respiratory exam: PRESENT: unlabored. ABSENT: tachypnea, wheezes Cardiovascular exam: ABSENT: tachycardia GI/Abdominal exam: PRESENT: soft, tenderness - very mild right sided. ABSENT: distended, firm, guarding, rebound, rigid Rectal exam: PRESENT: deferred Extremities exam: ABSENT: clubbing Musculoskeletal exam: ABSENT: deformity Neurological exam: PRESENT: alert, awake, oriented to person, oriented to place, oriented to time, oriented to situation, CN II-XII grossly intact Psychiatric exam: ABSENT: agitated, anxious, depressed Focused psych exam: ABSENT: delusional Skin exam: ABSENT: cyanosis, erythema, jaundice Results Laboratory Results: 04/05/20 16:30 04/05/20 16:30 04/05/20 04/05/20 04/05/20 16:30 16:30 16:30 WBC 12.7 H RBC 4.44 Hgb 12.8 Hct 37.5 MCV 84 MCH 28.7 MCHC 34.1 RDW 14.9 H Plt Count 298 Seg Neutrophils % 64.4 Sodium 139.6 Potassium 3.3 L Chloride 101 Carbon Dioxide 31 H Anion Gap 8 BUN 11 Creatinine 0.93 Est GFR ( Amer) > 60 Glucose 113 H Calcium 9.5 Total Bilirubin 0.6 AST 28 Alkaline Phosphatase 72 Total Protein 7.0 Albumin 4.2 Lipase 195.4 Urine Color YELLOW Urine Appearance CLOUDY Urine pH 6.0 Ur Specific [place] 1.021 Urine Protein 30 H Urine Glucose (UA) NEGATIVE Urine Ketones NEGATIVE Urine Blood NEGATIVE Urine RBC (Auto) 9 Impressions: Abdomen/Pelvis CT 04/05/20 17:42 IMPRESSION: 1. Tree-in-bud changes in both lower lung naylor. Cannot exclude bronchiolitis. 2. Mild hepatic steatosis. 3. No acute finding in the abdomen or pelvis. Assessment & Plan - Diagnosis (1) Abdominal pain Qualifiers: Abdominal location: unspecified location Qualified Code(s): R10.9 - Unspecified abdominal pain Is this a current diagnosis for this admission?: Yes - Plan Summary Plan Summary: 50-year-old female with right-sided abdominal pain. I have reviewed her CT scan. I see no areas of inflammation, free fluid, free air, or other concerning findings. She does have a large stool burden in the right colon. She may be experiencing constipation, versus medication related abdominal discomfort (Metformin), versus gastroenteritis (viral versus bacterial). At this time I cannot identify a surgical problem. Her exam is very benign. I have discussed the case with the ER provider at length. Disposition per emergency room physician.
== END 2020-04-05 23:19 | disposition home or self-care (01) ==
LOC: ER 15:43
DX: K59.00 Constipation, unspecified (principal); R10.31 Right lower quadrant pain; R11.0 Nausea; K76.0 Fatty (change of) liver, not elsewhere classified; I10 Essential (primary) hypertension; J45.909 Unspecified asthma, uncomplicated; E11.9 Type 2 diabetes mellitus without complications; F17.200 Nicotine dependence, unspecified, uncomplicated; E78.00 Pure hypercholesterolemia, unspecified; E78.5 Hyperlipidemia, unspecified; Z87.19 Personal history of other diseases of the digestive system; Z87.442 Personal history of urinary calculi; Z90.49 Acquired absence of other specified parts of digestive tract; Z79.899 Other long term (current) drug therapy; Z91.040 Latex allergy status; Z88.1 Allergy status to other antibiotic agents
CPT/HCPCS: 99285; 96361; 96374; 96375; 36415; 87086; 83690; 85025; 85610; 85730; 80053; 81001; 74177; A9270 ×2; J0500; J1885; J2270; J1170; J2405; J7030; J3490

== ENCOUNTER 2020-04-21 04:54 | Emergency (ER) | payer MEDICARE, MEDICAID ==
[2020-04-21] MEDS ORDERED: TETRACAINE HCL 0.5% OPH SOLN 4 ML OD ONE (08:25)
[2020-04-21] MEDS ORDERED: DIPH/PERTUSS(ACELL)/TETANUS VAC/PF 0.5 ML SYR (>=10YO) IM ONE (08:40)
--- NOTE | 2020-04-21 08:49 | ER Document Report ---
ED Eye Complaint - General Chief Complaint: Eye Pain Stated Complaint: RIGHT EYE SWELLING Time Seen by Provider: 04/21/20 08:25 Primary Care Provider: RANDY WALDEN MD [Primary Care Provider] - Follow up as needed Notes: CHIEF COMPLAINT: Right eye pain or foreign body HPI: 50-year-old female presenting for evaluation of right eye discomfort over the last 2 days. States that she felt something go into the eye and when she blinks has a painful scratching sensation. Complains of some blurring of vision and tearing from the eye. Has not seen her PCP or an eye doctor for evaluation of this issue. Indicates she is not up-to-date on her tetanus vaccination ROS: See HPI - all other systems were reviewed and are otherwise negative Constitutional: no fever Eyes: Positive tearing drainage, + blurred vision ENT: no runny nose, no sore throat Integumentary: no rash Allergy: no hives MEDICATIONS: I agree with the patient medications as charted by the RN. ALLERGIES: I agree with the allergies as charted by the RN. PAST MEDICAL HISTORY/PAST SURGICAL HISTORY: Reviewed and agree as charted by RN. SOCIAL HISTORY: Reviewed and agree as charted by RN. FAMILY HISTORY: No significant familial comorbid conditions directly related to patient complaint EXAM: Reviewed vital signs as charted by RN. CONSTITUTIONAL: Alert and oriented and responds appropriately to questions. Well-appearing; well-nourished HEAD: Normocephalic; atraumatic EYES: PERRL; Conjunctivae very mildly injected right eye, sclerae non-icteric. There is slight soft tissue swelling of the right eye upper eyelid. No visible hyphema. No visible stye. No visible foreign body under the upper or lower lids. There are three small corneal abrasions to the upper aspect of the iris between 12 and 2:00. Negative Jewell sign. ENT: normal nose; no rhinorrhea; moist mucous membranes; pharynx without lesions noted, no uvula edema or deviation, no tonsillar hypertrophy, phonation normal NECK: Supple without meningismus; non-tender; no cervical lymphadenopathy, no masses CARD: Capillary refill less than 3 seconds; symmetric distal pulses RESP: Normal chest excursion without splinting or tachypnea ABD/GI: non-distended. BACK: The back appears normal EXT: Normal ROM in all joints; no cyanosis, no effusions, no edema SKIN: Normal color for age and race; warm; dry; good turgor; no acute lesions noted NEURO: Moves all extremities equally; Motor and sensory function intact PSYCH: The patient's mood and manner are appropriate. Grooming and personal hygiene are appropriate. MDM: 50-year-old female possible foreign body 2 days ago now with corneal abrasions without a visible foreign body noted under the lids. Will irrigate the eye. Update tetanus status. I will call in antibiotics and pain medications for the patient refer her to ophthalmology - Related Data Allergies/Adverse Reactions: latex Allergy (Severe, Verified 04/05/20 18:58) azithromycin [From Zithromax Z-Domingo] Allergy (Verified 04/05/20 18:58) tetracycline Allergy (Verified 04/05/20 18:58) risperidone [From Risperdal] Adverse Reaction (Verified 04/05/20 18:58) Past Medical History - Social History Smoking Status: Current Every Day Smoker Frequency of alcohol use: None Drug Abuse: None Family History: DM, Hyperlipidemia, Hypertension. denies: CAD, Malignancy Patient has homicidal ideation: No - Past Medical History Cardiac Medical History: Reports: Hx Hypercholesterolemia, Hx Hypertension Denies: Hx Atrial Fibrillation, Hx Congestive Heart Failure, Hx Coronary Artery Disease, Hx DVT, Hx Heart Attack, Hx Peripheral Vascular Disease, Hx Pulmonary Embolism Pulmonary Medical History: Reports: Hx Asthma, Hx Bronchitis Denies: Hx COPD Neurological Medical History: Denies: Hx Seizures Endocrine Medical History: Reports: Hx Diabetes Mellitus Type 2. Denies: Hx Diabetes Mellitus Type 1, Hx Hyperthyroidism, Hx Hypothyroidism GI Medical History: Reports: Hx Gastroesophageal Reflux Disease. Denies: Hx Cirrhosis, Hx Crohn's Disease, Hx Hepatitis, Hx Ulcerative Colitis Musculoskeletal Medical History: Reports Hx Arthritis, Denies Hx Gout Skin Medical History: Denies Hx Eczema, Denies Hx Psoriasis Psychiatric Medical History: Reports: Hx Depression Infectious Medical History: Denies: Hx Hepatitis Past Surgical History: Reports: Hx Abdominal Surgery - Exploratory laparotomy, Hx Appendectomy, Hx Cholecystectomy, Hx Herniorrhaphy - with mesh, Hx Hysterectomy, Hx Orthopedic Surgery - Multiple back and knee surgeries, Other - Colonoscopy and EGD - Immunizations Hx Diphtheria, Pertussis, Tetanus Vaccination: Yes - Needs tetanus booster Physical Exam - Vital signs Vitals: Temp Pulse Resp BP Pulse Ox 98.4 F 100 20 135/66 H 96 04/21/20 04:58 04/21/20 04:58 04/21/20 04:58 04/21/20 04:58 04/21/20 04:58 Course - Vital Signs Vital signs: Temp Pulse Resp BP Pulse Ox 98.4 F 100 20 135/66 H 96 04/21/20 04:58 04/21/20 04:58 04/21/20 04:58 04/21/20 04:58 04/21/20 04:58 Discharge - Discharge Clinical Impression: Corneal abrasion, right Qualifiers: Encounter type: initial encounter Qualified Code(s): S05.01XA - Injury of conjunctiva and corneal abrasion without foreign body, right eye, initial encounter Condition: Stable Disposition: HOME, SELF-CARE Additional Instructions: 1. make sure to follow up closely with Ophthalmology for further evaluation and treatment 2. medications as prescribed, no driving on narcotics. 3. return for any worsening pain, visual change or loss Prescriptions: Hydrocodone/Acetaminophen [[place] 5-325 mg Tablet] 1 tab PO Q4 PRN #15 tablet PRN Reason: Polymyxin B Sulf/Trimethoprim [Polytrim Eye Drops] 1 drop OD Q3H 5 Days #10 ml Referrals: RANDY WALDEN MD [Primary Care Provider] - Follow up as needed JAIME GOODMAN MD [ACTIVE STAFF] - Follow up as needed
[2020-04-21 09:39] VITALS: BP 138/76
== END 2020-04-21 09:39 | disposition home or self-care (01) ==
LOC: ER 04:54
DX: S05.01XA Injury of conjunctiva and corneal abrasion without foreign body, right eye, initial encounter (principal); H57.11 Ocular pain, right eye; H53.8 Other visual disturbances; X58.XXXA Exposure to other specified factors, initial encounter; F17.200 Nicotine dependence, unspecified, uncomplicated; E78.00 Pure hypercholesterolemia, unspecified; I10 Essential (primary) hypertension; E11.9 Type 2 diabetes mellitus without complications; Z90.49 Acquired absence of other specified parts of digestive tract; Z91.040 Latex allergy status; Z23 Encounter for immunization
CPT/HCPCS: 99284; 90471; 90715; J3490

== ENCOUNTER 2020-06-16 14:07 | Emergency (ER) | payer MEDICARE, MEDICAID ==
[2020-06-16] MEDS ORDERED: ONDANSETRON 4 MG TAB.RAPDIS PO ONE (15:07)
--- NOTE | 2020-06-16 15:11 | ER Document Report ---
ED Medical Screen (RME) - General Stated Complaint: BACK PAIN Time Seen by Provider: 06/16/20 15:05 Primary Care Provider: RANDY WALDEN MD [Primary Care Provider] - Follow up as needed Notes: Patient presents complaining of right lower back pain for the past week. Patient reports nausea and vomiting with a 14 pound weight loss over the past week. Patient was exposed to someone who tested positive for Covid and patient has a currently pending Covid test. Patient denies any cough or urinary symptoms. Patient denies any fever. Patient denies any diarrhea symptoms. Patient does have a history of hypertension, dyslipidemia and diabetes. Patient has had previous lower back surgery 5 years ago. I have greeted and performed a rapid initial assessment of this patient. A comprehensive ED assessment and evaluation of the patient, analysis of test results and completion of the medical decision making process will be conducted by additional ED providers. - Related Data Allergies/Adverse Reactions: latex Allergy (Severe, Verified 04/05/20 18:58) azithromycin [From Zithromax Z-Domingo] Allergy (Verified 04/05/20 18:58) tetracycline Allergy (Verified 04/05/20 18:58) risperidone [From Risperdal] Adverse Reaction (Verified 04/05/20 18:58) Past Medical History - Past Medical History Cardiac Medical History: Reports: Hx Hypercholesterolemia, Hx Hypertension Denies: Hx Atrial Fibrillation, Hx Congestive Heart Failure, Hx Coronary Artery Disease, Hx DVT, Hx Heart Attack, Hx Peripheral Vascular Disease, Hx Pulmonary Embolism Pulmonary Medical History: Reports: Hx Asthma, Hx Bronchitis Denies: Hx COPD Neurological Medical History: Denies: Hx Seizures Endocrine Medical History: Reports: Hx Diabetes Mellitus Type 2. Denies: Hx Diabetes Mellitus Type 1, Hx Hyperthyroidism, Hx Hypothyroidism GI Medical History: Reports: Hx Gastroesophageal Reflux Disease. Denies: Hx Cirrhosis, Hx Crohn's Disease, Hx Hepatitis, Hx Ulcerative Colitis Musculoskeltal Medical History: Reports Hx Arthritis, Denies Hx Gout Skin Medical History: Denies Hx Eczema, Denies Hx Psoriasis Psychiatric Medical History: Reports: Hx Depression Infectious Medical History: Denies: Hx Hepatitis Past Surgical History: Reports: Hx Abdominal Surgery - Exploratory laparotomy, Hx Appendectomy, Hx Cholecystectomy, Hx Herniorrhaphy - with mesh, Hx Hysterectomy, Hx Orthopedic Surgery - Multiple back and knee surgeries, Other - Colonoscopy and EGD - Immunizations Hx Diphtheria, Pertussis, Tetanus Vaccination: Yes - Needs tetanus booster Physical Exam - Vital signs Vitals: Temp Pulse Resp BP Pulse Ox 98.2 F 103 H 22 H 113/64 96 06/16/20 14:11 06/16/20 14:11 06/16/20 14:11 06/16/20 14:11 06/16/20 14:11 - Back Back: Tender - Right lower lumbar tenderness Course - Vital Signs Vital signs: Temp Pulse Resp BP Pulse Ox 98.2 F 103 H 22 H 113/64 96 06/16/20 14:11 06/16/20 14:11 06/16/20 14:11 06/16/20 14:11 06/16/20 14:11 Doctor's Discharge - Discharge Referrals: RANDY WALDEN MD [Primary Care Provider] - Follow up as needed
--- NOTE | 2020-06-16 15:50 | RADIOLOGY REPORT (SQ) ---
EXAM DESCRIPTION: L SPINE WHOLE IMAGES COMPLETED DATE/TIME: 06/16/2020 3:25 pm REASON FOR STUDY: low back pain COMPARISON: 01/22/2011. NUMBER OF VIEWS: Five views including obliques. TECHNIQUE: AP, lateral, oblique, and sacral radiographic images acquired of the lumbar spine. LIMITATIONS: None. FINDINGS: MINERALIZATION: Normal. SEGMENTATION: Normal. No transitional anatomy. ALIGNMENT: Normal. VERTEBRAE: Maintained height. No fracture or worrisome bone lesion. DISCS: Preserved height. No significant osteophytes or end plate irregularity. POSTERIOR ELEMENTS: Pedicles and facets are intact. No pars defect or posterior arch defects. HARDWARE: Anterior hardware at L4-L5 and L5-S1. PARASPINAL SOFT TISSUES: Normal. PELVIS: Intact as visualized. No fractures or worrisome bone lesions. SI joints intact. OTHER: No other significant finding. IMPRESSION: HARDWARE IN THE LOWER LUMBAR SPINE. NO ACUTE OR SIGNIFICANT FINDINGS. TECHNICAL DOCUMENTATION: JOB ID: [id number] 2010 [email or web address]- All Rights Reserved Reading location - IP/workstation name: [email or web address]
[2020-06-16] MEDS ORDERED: ONDANSETRON 4 MG TAB.RAPDIS ONE (18:29)
[2020-06-16 18:56] LABS: ABSOLUTE LYMPHOCYTES (AUTO) 3.7 10^3/uL (0.5-4.7); ABSOLUTE NEUT (AUTO) 11.4 10^3/uL (1.7-8.2); BASOPHILS % (AUTO) 0.3 % (0-2); EOSINOPHILS % (AUTO) 0.3 % (0-6); HEMOGLOBIN 12.2 g/dL (12.0-15.5); MEAN CORPUSCULAR HEMOGLOBIN 29.3 pg (27.0-33.4); MEAN CORPUSCULAR VOLUME 84 fl (80-97); MONOCYTES % (AUTO) 6.2 % (3-13); PLATELET COUNT 290 10^3/uL (150-450); RED BLOOD COUNT 4.18 10^6/uL (3.72-5.28); RED CELL DISTRIBUTION WIDTH 15.9 % (11.5-14.0); SEGMENTED NEUTROPHILS % (AUTO) 70.2 % (42-78); TOTAL CELLS COUNTED % (AUTO) 100 %; WHITE BLOOD COUNT 16.2 10^3/uL (4.0-10.5)
[2020-06-16 19:11] LABS: ALBUMIN 4.9 g/dL (3.5-5.0); ALKALINE PHOSPHATASE 84 U/L (38-126); ANION GAP 11 (5-19); ASPARTATE AMINO TRANSFERASE 26 U/L (14-36); BILIRUBIN,DIRECT 0.2 mg/dL (0.0-0.4); BLOOD UREA NITROGEN 29 mg/dL (7-20); CALCIUM 10.4 mg/dL (8.4-10.2); CARBON DIOXIDE 29 mmol/L (22-30); CHLORIDE 96 mmol/L (98-107); GLUCOSE 105 mg/dL (75-110); POTASSIUM 3.9 mmol/L (3.6-5.0); TOTAL PROTEIN 8.2 g/dL (6.3-8.2)
[2020-06-16] MEDS ORDERED: METHYLPREDNISOLONE INJ 125 MG/2 ML SDV IV ONE (20:44)
[2020-06-16] MEDS ORDERED: KETOROLAC TROMETHAMINE INJ/PF 30 MG/1 ML SDV IV ONE (20:45)
[2020-06-16] MEDS ORDERED: METOCLOPRAMIDE HCL INJ/PF 10 MG/2 ML SDV IV ONE (20:45)
--- NOTE | 2020-06-16 20:51 | ER Document Report ---
ED General - General Chief Complaint: Back Pain Stated Complaint: BACK PAIN Time Seen by Provider: 06/16/20 15:05 Primary Care Provider: RANDY WALDEN MD [Primary Care Provider] - Follow up as needed - HPI Context: Chief Complaint: [This is a 50-year-old female presenting with a chief complaint of back pain] [Patient presents complaining of right-sided paraspinous lower back pain that she states radiates down the back of her right leg. Patient has a history of problems with her lumbar spine has had multiple surgeries related to it. Patient states her symptoms feel like a ruptured disc like she has had in the past. Patient denies abdominal pain. Patient does have a history of diabetes. Patient states the pain has gotten so bad that is causing her to vomit. Patient also states that she feels like she has pressure when she tries to urinate. Patient states that she was on Bactrim double strength about a month ago for UTI. ] History obtained from [patient] Symptoms began:[1 week ago] Onset: [Sudden] Timing: [While walking] Quality: [Sharp] Intensity: [5 out of 5] Location: [Right lower back] Radiation: [Radiates down the back of her right leg] ] Aggravating factors: Walking Relieving factors: [none] [Denies] SOB Positive nausea Positive vomiting [Denies] sweats [Denies] fever [Denies] cough [Denies] calf or leg swelling or pain - Related Data Allergies/Adverse Reactions: latex Allergy (Severe, Verified 04/05/20 18:58) azithromycin [From Zithromax Z-Domingo] Allergy (Verified 04/05/20 18:58) tetracycline Allergy (Verified 04/05/20 18:58) risperidone [From Risperdal] Adverse Reaction (Verified 04/05/20 18:58) Past Medical History - General Information source: Patient - Social History Smoking Status: Unknown if Ever Smoked Family History: DM, Hyperlipidemia, Hypertension. denies: CAD, Malignancy Patient has homicidal ideation: No - Past Medical History Cardiac Medical History: Reports: Hx Hypercholesterolemia, Hx Hypertension Denies: Hx Atrial Fibrillation, Hx Congestive Heart Failure, Hx Coronary Artery Disease, Hx DVT, Hx Heart Attack, Hx Peripheral Vascular Disease, Hx Pulmonary Embolism Pulmonary Medical History: Reports: Hx Asthma, Hx Bronchitis Denies: Hx COPD Neurological Medical History: Denies: Hx Seizures Endocrine Medical History: Reports: Hx Diabetes Mellitus Type 2. Denies: Hx Diabetes Mellitus Type 1, Hx Hyperthyroidism, Hx Hypothyroidism GI Medical History: Reports: Hx Gastroesophageal Reflux Disease. Denies: Hx Cirrhosis, Hx Crohn's Disease, Hx Hepatitis, Hx Ulcerative Colitis Musculoskeletal Medical History: Reports Hx Arthritis, Denies Hx Gout Skin Medical History: Denies Hx Eczema, Denies Hx Psoriasis Psychiatric Medical History: Reports: Hx Depression Infectious Medical History: Denies: Hx Hepatitis Past Surgical History: Reports: Hx Abdominal Surgery - Exploratory laparotomy, Hx Appendectomy, Hx Cholecystectomy, Hx Herniorrhaphy - with mesh, Hx Hysterectomy, Hx Orthopedic Surgery - Multiple back and knee surgeries, Other - Colonoscopy and EGD - Immunizations Hx Diphtheria, Pertussis, Tetanus Vaccination: Yes - Needs tetanus booster Review of Systems - Review of Systems Notes: Review of systems as below unless otherwise stated in HPI. CONSTITUTIONAL Female fever, [No] chills. EYES [No] eye pain. ENT [No] URI symptoms, [No] sore throat, [No] ear pain. CARDIOVASCULAR [No] chest pain, [No] palpitations, [No] edema. RESPIRATORY [No] Cough, [No] SOB, [No] wheezing. GASTROINTESTINAL [No] abdominal pain, [No] nausea, [No] Diarrhea, [No] Vomiting, [No] constipation, [No] melena, [No] rectal bleeding. GENITOURINARY [No] dysuria, [No] urinary frequency, [No] hematuria, [No] urinary urgency positive "pressure" Patient is urinating MUSCULOSKELETAL Positive back pain. SKIN [No] Rash. NEUROLOGIC [No] Headache, [No] recent seizures, [No] paralysis,[No] parathesias. ENDOCRINE [No] polyuria. HEMO/LYMPATIC [No] easy brusing PSYCHIATRIC [No] depression. Physical Exam - Vital signs Vitals: Temp Pulse Resp BP Pulse Ox 98.2 F 103 H 22 H 113/64 96 06/16/20 14:11 06/16/20 14:11 06/16/20 14:11 06/16/20 14:11 06/16/20 14:11 - Notes Notes: CONSTITUTIONAL [Vital signs reviewed, Patient appears comfortable, Alert and oriented X 3, Normal stature.] HEAD [Atraumatic, Normocephalic.] EYES [Eyes are normal to inspection, No discharge from eyes, Extraocular muscles intact, Sclera are normal, Conjunctiva are normal.] ENT [External ears normal to inspection, Nose examination normal, Mouth normal to inspection.] NECK [Normal ROM, No jugular venous distention, No meningeal signs, ] RESPIRATORY CHEST [Chest is nontender, Breath sounds normal, No respiratory distress.] CARDIOVASCULAR [RRR, No murmurs, Normal S1 S2, No rub, No gallop.] ABDOMEN [Abdomen is nontender, No pulsatile masses, No other masses, Bowel sounds normal, No distension, No peritoneal signs, No hernias.] BACK [There is no CVA Tenderness, There is no tenderness to palpation, negative left straight leg raise test, positive straight leg raise test on the right side at 20 degrees UPPER EXTREMITY [Inspection normal, No cyanosis, No clubbing, No edema, LOWER EXTREMITY Positive straight leg raise right lower extremity, no cyanosis, No clubbing, No edema, No calf tenderness, NEURO [No focal motor deficits, No focal sensory deficits, Speech normal.] SKIN [Skin is warm, Skin is dry, Skin is normal color.] LYMPHATIC [No adenopathy in neck.] PSYCHIATRIC [Normal affect. ] Course - Re-evaluation Re-evalutation: 06/16/20 20:51 Results of ED MSE discussed with patient. All questions were answered prior to discharge. Emergency signs and symptoms, reasons to return to the emergency department discussed with patient. Patient states that the Reglan helped slightly with the nausea. Patient states that she has used Phenergan in the past with relief of nausea. - Vital Signs Vital signs: Temp Pulse Resp BP Pulse Ox 98.2 F 103 H 22 H 113/64 96 06/16/20 14:11 06/16/20 14:11 06/16/20 14:11 06/16/20 14:11 06/16/20 14:11 - Laboratory Results Result Diagrams: 06/16/20 18:35 06/16/20 18:35 Laboratory Results Interpreted: 06/16/20 06/16/20 06/16/20 18:35 18:35 20:25 WBC 16.2 H Hct 35.0 L RDW 15.9 H Absolute Neuts (auto) 11.4 H Sodium 135.9 L Chloride 96 L BUN 29 H Creatinine 1.42 H Est GFR ( Amer) 47 L Est GFR (MDRD) Non-Af 39 L Calcium 10.4 H Urine Protein 100 H Urine Ketones TRACE H Urine Urobilinogen 2.0 H Ur Leukocyte Esterase LARGE H Critical Laboratory Results Reviewed: No Critical Results Attending or Supervising Physician who Reviewed Labs: BRENDAN VALENCIA IV - Radiology Results Critical Radiology Results Reviewed: No Critical Results Attending or Supervising Physician who Reviewed Radiology: BRENDAN VALENCIA IV Discharge - Discharge Clinical Impression: Right-sided low back pain with sciatica Qualifiers: Chronicity: acute Sciatica laterality: sciatica of right side Qualified Code(s): M54.41 - Lumbago with sciatica, right side UTI (urinary tract infection) Qualifiers: Urinary tract infection type: site unspecified Hematuria presence: without hematuria Qualified Code(s): N39.0 - Urinary tract infection, site not specified Condition: Stable Disposition: HOME, SELF-CARE Instructions: Urinary Tract Infection ([facility]) Additional Instructions: Return to the Emergency Department without delay if any worse. HOME CARE INSTRUCTIONS & INFORMATION: Thank you for choosing us for your medical needs. We hope you're satisfied with the care you received. After you leave, you must properly care for your problem and, at the same time, observe its progress. Any condition can change. Some illnesses can change rapidly over hours or days. If your condition worsens, return to the Emergency Department or see your physician promptly. ABOUT YOUR X-RAYS AND EKG'S: If you had an EKG or X-rays taken, they have been read by the Emergency Physician. The X-rays and EKG's will also be read by a Radiologist or Metal Mover within 24 hours. If discrepancies are noted, you will be notified by telephone. Please be certain the ED has a correct telephone number & address where you can be reached. Also, realize that some fractures or abnormalities do not show up on initial X-rays. If your symptoms continue, see your physician. ABOUT YOUR LABORATORY TEST: If you had laboratory tests, the results have been reviewed by the Emergency Physician. Some test results (for example cultures) may not be available for several days. You will be contacted if any test result shows you need additional treatment. Please be certain the ED has a correct telephone number and address where you can be reached. ABOUT YOUR MEDICATIONS: You will receive instructions on how to take your medicine on the prescription label you receive. Additional information may be provided by the Pharmacy. If you have questions afterwards, call the ED for clarification or further instructions. Some prescribed medications may cause drowsiness. Do not perform tasks such as driving a car or operating machinery without consulting your Pharmacist. If you feel you need a refill of pain medication, your condition will need re-evaluation. Please do not call for a refill of any medication. ABOUT YOUR SIGNATURE: Signature of this document acknowledges to followin. Understanding that you received emergency treatment and that you may be re leased before al medical problems are known or treated. Please be certain the ED has a correct phone number & address where you can be reached. 2. Acknowledgement that you will arrange for follow-up care as recommended. 3. Authorization for the Emergency Physician to provide information to your follow-up Physician in order to maximize your care. AT ANY TIME, IF YOUR SYMPTOMS CHANGE SIGNIFICANTLY OR WORSEN OR YOU DEVELOP NEW SYMPTOMS, RETURN TO THE EMERGENCY DEPARTMENT IMMEDIATELY FOR RE-EVALUATION. OUR GOAL IS TO PROVIDE EXCELLENT MEDICAL CARE! WE HOPE THAT WE HAVE MET YOUR EXPECTATIONS DURING YOUR EMERGENCY DEPARTMENT VISIT AND THAT YOU FEEL YOU HAVE RECEIVED EXCELLENT CARE! Sciatica Your symptoms suggest "sciatica." The pain of sciatica typically radiates down the leg. Numbness in the foot or calf may also occur. Sciatica is caused by irritation of the sciatic nerve or its branches. The irritation can be due to a herniated disk in the spine, swelling and inflammation in the muscles surrounding the sciatic nerve, or direct injury of the nerve itself. Most cases of sciatica will resolve with medical treatment. Bed rest is usually recommended initially. Surgery is only necessary when the condition will not improve with rest and antiinflammatory medication. Muscle relaxers are often given if muscle soreness is present. A CAT scan of the back may be performed if a herniated disk is suspected. Re-examination is necessary if you develop increasing numbness, localized weakness in the foot or ankle, or if the pain does not respond to rest. Prescriptions: Hydrocodone/Acetaminophen [[place] 5-325 mg Tablet] 1 tab PO Q6HP PRN #15 tablet PRN Reason: pain Promethazine HCl [Phenergan 25 mg Tablet] 25 mg PO Q6HP PRN #12 tablet PRN Reason: nausea Prednisone [Deltasone 10 mg Tablet] 10 mg PO ASDIR #21 tablet Nitrofurantoin Monohyd/M-Cryst [Macrobid 100 mg Capsule] 100 mg PO BID 10 Days #20 cap Referrals: RANDY WALDEN MD [Primary Care Provider] - Follow up as needed
[2020-06-16 21:05] LABS: APPEARANCE,URINE CLOUDY; BILIRUBIN,URINE NEGATIVE (NEGATIVE); COLOR,URINE AMBER; GLUCOSE, URINE NEGATIVE (NEGATIVE); KETONES,URINE TRACE mg/dL (NEGATIVE); LEUKOCYTE ESTERASE,URINE LARGE (NEGATIVE); NITRITE,URINE NEGATIVE (NEGATIVE); PROTEIN,URINE 100 mg/dL (NEGATIVE); URINE SPECIFIC GRAVITY 1.028
[2020-06-16] MEDS ORDERED: NITROFURANTOIN MONOHYD/M-CRYST 100 MG CAPSULE PO ONE (21:29)
[2020-06-16] MEDS ORDERED: ONDANSETRON ODT 4 MG TAB (6 TAB/ER DISP) PO PRN (21:41)
[2020-06-16] MEDS ORDERED: HYDROCODONE/ACETAMINOPHEN 5-325 MG (6 TAB/ER DISP) PO PRN (21:41)
[2020-06-16 22:16] VITALS: BP 107/43
== END 2020-06-16 22:16 | disposition home or self-care (01) ==
LOC: ER 14:07
DX: M54.41 Lumbago with sciatica, right side (principal); N39.0 Urinary tract infection, site not specified; E11.9 Type 2 diabetes mellitus without complications; R11.2 Nausea with vomiting, unspecified; I10 Essential (primary) hypertension; J45.909 Unspecified asthma, uncomplicated; Z98.890 Other specified postprocedural states; Z91.040 Latex allergy status; Z88.1 Allergy status to other antibiotic agents
CPT/HCPCS: 99284; 96374; 96375; 36415; 83690; 85025; 80053; 81001; 72110; A9270 ×4; J2930; J1885; J2765; J8499; S0119

== ENCOUNTER 2020-07-06 15:35 | Emergency (ER) | payer MEDICARE, MEDICAID ==
[2020-07-06 15:49] VITALS: BP 114/67
--- NOTE | 2020-07-06 16:47 | ER Document Report ---
ED General - General Chief Complaint: Low Back Pain Stated Complaint: FALL/BACK PAIN Primary Care Provider: RANDY WALDEN MD [Primary Care Provider] - Follow up as needed - HPI Notes: Chief Complaint: left low back pain, fall Historian: History obtained from patient HPI: 50-year-old female presents to the ER complaining of left-sided low back pain rating down the left leg since this morning. Patient says her knee gave out and she fell onto her left hip. No head injury or loss of consciousness. Patient has a history of 5 back surgeries and usually has chronic right-sided low back pain down the right leg but never has left-sided symptoms. She is ambulatory in the ED denies incontinence, saddle anesthesia, or any weakness. No treatments tried ROS: Constitutional: no fevers. HEENT: no MORE, sore throat, or vision changes. CV: no chest pain or palpitations. Resp: no cough or SOB. GI: no abdominal pain, or n/v/d. : no dysuria, hematuria, or incont. MSK: left low back pain, fall Skin: no rashes or itching. Neuro: no seizures, weakness, numbness, or confusion. Hematological: no ecchymosis or easy bleeding. Endocrine: no polyuria/polydipsia, no heat/cold intolerance. Psych: no SI/HI, AH/VH or memory loss. PMHx: Reviewed and agree as charted by RN. PSHx: Reviewed and agree as charted by RN. SOCHx: Reviewed and agree as charted by RN. FHX: No significant familial comorbid conditions directly related to patient complaint Current Medications: Reviewed and agree with the patient medications as charted by the RN. Allergies: Reviewed and agree with the listed allergies as charted by the RN Physical Exam: Vitals: Reviewed in chart as documented by RN. General: Alert and in NAD. Head: Normocephalic; atraumatic Eyes: PERRLA, Conjunctivae clear sclerae non-icteric bilat ENT: no soft palate swelling or uvular deviation Neck: trachea midline, no unilateral swelling/tenderness/lymphadenopathy CV: RRR, no M/R/G; symmetric distal pulses Resp: respirations even and unlabored, CTA bilat. GI: abd soft and nondistended. NTTP. normal BS. no masses/HSM. no CVAT bilat MSK: lumbar- no midline tenderness or deformity.mild left paraspinous tenderness. mild dec in lumbar spine due to pain SLR neg bilat. Strength 5/5 and equal to BLE. no saddle anesthesia. sensation intact to BLE. pedal pulses 2+ to BLE. cap refill <3 sec Skin: warm, moist, good turgor. no rash/lesions Neuro: Alert and oriented X 4. following CN 2-12 intact. no unilateral weakness/numbness Psych: No SI/HI or AH/VH. ED Results: Medical Decision-Making: Presentation of a well appearing patient complaining of acute on chronic back pain. No rapid progression of symptoms, systemic symptoms including fevers, chills, weight loss, history of recent bacterial infection, bilateral symptoms, numbness, weakness, difficulty walking, urinary retention or bowel incontinence, personal history of cancer, immunosuppression, diabetes, known AAA, or history of IV drug use. Exam is without point tenderness over vertebral bodies, pulsatile abdominal mass, and patient has symmetric and intact lower extremity strength, sensation, and reflexes without clonus. 2+ symmetric medial malleolar and dorsalis pedis pulses Based on history and physical, I have a very low suspicion of a concerning etiology of pain including epidural compression syndrome, spinal infection, transverse myelitis, malignancy, abdominal aortic aneurysm, renal colic, acute lower extremity claudication, neurogenic claudication, ankylosing spondylitis, or other intra-abdominal process. Due to absence of concerning risk factors in history and physical as well as absence of rapidly progressive, severe, or bilateral symptoms, will defer imaging at this point. - Related Data Allergies/Adverse Reactions: latex Allergy (Severe, Verified 07/06/20 16:38) azithromycin [From Zithromax Z-Domingo] Allergy (Verified 07/06/20 16:38) erythromycin base Allergy (Verified 07/06/20 16:39) tetracycline Allergy (Verified 07/06/20 16:38) risperidone [From Risperdal] Adverse Reaction (Verified 07/06/20 16:38) Home Medications: GABAPENTIN. PRAZOSIN. METFORMIN. LAMOTRIGINE. AMLODIPINE. ATROVASTATIN. LISINOPRIL. LATUDA. BUSPIRONE. HYDROCODONE/ACETAMINOPHIN. PREDNISONE. PROMETHAZINE. ZIPRASIDONE Past Medical History - Social History Smoking Status: Current Every Day Smoker Chew tobacco use (# tins/day): No Frequency of alcohol use: None Drug Abuse: None Family History: DM, Hyperlipidemia, Hypertension. denies: CAD, Malignancy Patient has homicidal ideation: No - Past Medical History Cardiac Medical History: Reports: Hx Hypercholesterolemia, Hx Hypertension Denies: Hx Atrial Fibrillation, Hx Congestive Heart Failure, Hx Coronary Artery Disease, Hx DVT, Hx Heart Attack, Hx Peripheral Vascular Disease, Hx Pulmonary Embolism Pulmonary Medical History: Reports: Hx Asthma, Hx Bronchitis Denies: Hx COPD Neurological Medical History: Denies: Hx Seizures Endocrine Medical History: Reports: Hx Diabetes Mellitus Type 2. Denies: Hx Diabetes Mellitus Type 1, Hx Hyperthyroidism, Hx Hypothyroidism GI Medical History: Reports: Hx Gastroesophageal Reflux Disease. Denies: Hx Cirrhosis, Hx Crohn's Disease, Hx Hepatitis, Hx Ulcerative Colitis Musculoskeletal Medical History: Reports Hx Arthritis, Denies Hx Gout Skin Medical History: Denies Hx Eczema, Denies Hx Psoriasis Psychiatric Medical History: Reports: Hx Depression Infectious Medical History: Denies: Hx Hepatitis Past Surgical History: Reports: Hx Abdominal Surgery - Exploratory laparotomy, Hx Appendectomy, Hx Cholecystectomy, Hx Herniorrhaphy - with mesh, Hx Hysterectomy, Hx Orthopedic Surgery - Multiple back and knee surgeries, Other - Colonoscopy and EGD - Immunizations Hx Diphtheria, Pertussis, Tetanus Vaccination: Yes - Needs tetanus booster Physical Exam - Vital signs Vitals: Temp Pulse Resp BP Pulse Ox 98.6 F 110 H 20 114/67 97 07/06/20 15:45 07/06/20 15:45 07/06/20 15:45 07/06/20 15:45 07/06/20 15:45 Course - Re-evaluation Re-evalutation: 07/06/20 17:36 Reviewed imaging, no acute findings noted. Hardware intact. We will treat symptomatically for the left-sided sciatica. Patient is generally very well controlled diabetic, will give her a few days of prednisone. She has an sensitive chronic pain history and takes things like baclofen, gabapentin, etc. encouraged her to continue her home meds as well, also gave her education regarding home stretches/exercises. Discussed return factors with the patient. She is to follow-up with her doctor this coming week for recheck and further eval 07/06/20 17:38 - Vital Signs Vital signs: Temp Pulse Resp BP Pulse Ox 98.6 F 110 H 20 114/67 97 07/06/20 15:45 07/06/20 15:45 07/06/20 15:45 07/06/20 15:45 07/06/20 15:45 - Laboratory Results Critical Laboratory Results Reviewed: No Critical Results - Radiology Results Critical Radiology Results Reviewed: No Critical Results Discharge - Discharge Clinical Impression: Left-sided low back pain with left-sided sciatica Qualifiers: Chronicity: acute Qualified Code(s): M54.42 - Lumbago with sciatica, left side Condition: Stable Disposition: HOME, SELF-CARE Instructions: Low Back Pain ([facility]) Additional Instructions: Follow all printed instructions. Take medications as prescribed. Follow up with your doctor in 2-3 days for re-check. Return to the ER if your condition worsens. Prescriptions: Prednisone [Deltasone 20 mg Tablet] 3 tab PO DAILY 5 Days #12 tablet Referrals: RANDY WALDEN MD [Primary Care Provider] - Follow up as needed
--- NOTE | 2020-07-06 17:22 | RADIOLOGY REPORT (SQ) ---
EXAM DESCRIPTION: L SPINE 2 VIEWS IMAGES COMPLETED DATE/TIME: 07/06/2020 5:14 pm REASON FOR STUDY: fall, left low back pain down left leg COMPARISON: 06/16/2020 NUMBER OF VIEWS: Three views TECHNIQUE: AP, lateral, and lateral sacral radiographic images acquired of the lumbar spine. LIMITATIONS: None. FINDINGS: MINERALIZATION: Normal. SEGMENTATION: Normal. No transitional anatomy. ALIGNMENT: Normal. VERTEBRAE: Maintained height. No fracture or worrisome bone lesion. DISCS: Disc implants at L4-5 and L5-S1. POSTERIOR ELEMENTS: Pedicles and facets are intact. No pars defect or posterior arch defects. HARDWARE: Anterior hardware at L4-5 and L5-S1 with screws into the vertebral bodies. Disc implants. PARASPINAL SOFT TISSUES: Normal. PELVIS: Intact as visualized. No fractures or worrisome bone lesions. SI joints intact. OTHER: No other significant finding. IMPRESSION: Surgical changes. No acute finding. TECHNICAL DOCUMENTATION: JOB ID: [id number] [employer] All Rights Reserved Reading location - IP/workstation name: [email or web address]
[2020-07-06] MEDS ORDERED: HYDROCODONE/ACETAMINOPHEN 5-325 MG (6 TAB/ER DISP) PO PRN (18:20)
== END 2020-07-06 18:34 | disposition home or self-care (01) ==
LOC: ER 15:35
DX: M54.42 Lumbago with sciatica, left side (principal); M79.605 Pain in left leg; G89.29 Other chronic pain; W19.XXXA Unspecified fall, initial encounter; Z98.890 Other specified postprocedural states; Z88.8 Allergy status to other drugs, medicaments and biological substances; Z79.899 Other long term (current) drug therapy; Z79.84 Long term (current) use of oral hypoglycemic drugs; F17.200 Nicotine dependence, unspecified, uncomplicated; I10 Essential (primary) hypertension; J45.909 Unspecified asthma, uncomplicated; E11.9 Type 2 diabetes mellitus without complications
CPT/HCPCS: 99284; 72100; A9270